=== PATIENT | female | born 1960 | race Caucasian/White ===

== ENCOUNTER → 2016-12-28 | Outpatient (CLI) | payer MEDICARE, MEDICAID ==
[~2016-12-28] MED LIST: ALBUTEROL1.25 MG/3 NEB; AMBIEN10 M1 PO; AMLODIPINE10 MG PO; AMLODIPINE5 MG PO; ASPIRIN81 M1 PO; Bactrim Ds 8001 TAB PO; DIABETA2.5 MG PO; DIABETA5 MG PO; DOCUSATE SODIU100 M2 PO; EFFEXOR50 MG PO; ELIMITE 5%60 GM T; FIORICET 325 MG1 TAB PO; FLONASE 0.05% 121 EA NAS; FLONASE0.05 MG/AC; GABARONE300 MG PO; GLYBURIDE5 MG PO; HYDROXYZINE HCL25 M1 PO; LANTUS100 U/ML SC; LEVASTATIN PO; LIDEX 0.05% CRE15 GM T; LISINOPRIL5 MG PO; LOPRESSOR25 MG PO; LOVASTATIN10 MG PO; LOVASTATIN40 MG PO; LYSTEDA650 MG PO; MAXIPIME1 GM IV; MUCINEX600 MG PO; MULTIVITAMIN1 SGL PO; Metformin Hydr500 MG PO; NORCO 325 MG-51 TAB PO; OVAR; OXYBUTYNIN5 MG PO; PAXIL10 MG PO; PERCOCET 325 MG1 TA2; PERCOCET 325 MG1 TA2 PO; PERCOCET 325 MG1 TA4 PO; PREDNICOT20 MG PO; PREDNISONE10 MG PO; PRILOSEC20 MG PO; QVAR 80MCG/INH7.3 G1; ROBAXIN750 MG PO; ROBITUSSIN AC 110 ML PO; VENTOLIN H0.09 MG/AC IH; VICODIN 5/500 505 MG PO; VITAMIN D400 IU PO; XANAX0.25 MG PO; ZITHROMAX Z PA250 MG PO; ZITHROMAX500 MG PO; ZOFRAN4 MG PO; [UNRECOGNIZED DRUG - CODE] SC; [UNRECOGNIZED DRUG - OTHER] R
[2016-12-28 15:39] LABS: URIC ACID 5.3 mg/dL (2.6-6.0)
[2016-12-28 15:44] LABS: THYROID STIM HORMONE (HS) 1.34 uIU/ml (0.358-4.75)
[2016-12-29 08:11] LABS: RHEUMATOID ARTHRITIS FACTOR <10.0 IU/mL (0.0-13.9)
[2016-12-29 11:05] LABS: LYME AB/TOTAL IMMUNOGLOBULINS <0.91 ISR (0.00-0.90)
[2016-12-29 15:07] LABS: ANGIOTENSIN-CONVERTING ENZYME 38 U/L (14-82)
== END | disposition home or self-care (01) ==
LOC: LAB 14:15 → US 14:30
PROVIDERS: Podiatrist
DX: R53.82 Chronic fatigue, unspecified (principal); R60.0 Localized edema

== ENCOUNTER → 2017-02-01 | Outpatient (CLI) | payer MEDICARE, MEDICAID ==
[2017-02-01 11:50] LABS: HEMATOCRIT 43.4 % (37.0-47.0); HEMOGLOBIN 14.8 g/dl (12.0-16.0); MEAN CELL VOLUME 94.6 fl (81.0-99.0); MEAN CORPUSCULAR HGB 32.2 pg (27.0-31.0); MEAN CORPUSCULAR HGB CONC 34.1 g/dl (33.0-37.0); MEAN PLATELET VOLUME 9.5 fl (9.6-12.3); PLATELET COUNT AUTOMATED 179 10*3/uL (130-400); RED BLOOD COUNT 4.59 10*6/uL (4.10-5.10); RED CELL DISTRI WIDTH 13.2 % (0-14.5)
[2017-02-01 12:05] LABS: ALBUMIN 3.4 gm/dl (3.1-4.5); ALKALINE PHOSPHATASE 159 U/L (45-117); BUN 16 mg/dl (7-24); CHLORIDE 106 mmol/L (98-107); CREATININE 0.93 mg/dL (0.55-1.02); IRON 67 ug/dL (50-170); POTASSIUM 4.5 mmol/L (3.5-5.1); SGOT/AST 23 IU/L (3-35); SGPT/ALT 30 U/L (12-78); SODIUM 144 mmol/L (136-145); TOTAL IRON BINDING CAPACITY 271 ug/dl (250-450); TOTAL PROTEIN 7.8 gm/dL (6.4-8.2)
[2017-02-01 13:31] LABS: FERRITIN 36.4 ng/mL (10.0-291.0)
== END | disposition home or self-care (01) ==
LOC: LAB 10:48
PROVIDERS: Physician Assistant Surgical
DX: E66.01 Morbid (severe) obesity due to excess calories (principal); R53.82 Chronic fatigue, unspecified; E56.9 Vitamin deficiency, unspecified; R79.89 Other specified abnormal findings of blood chemistry; E55.9 Vitamin D deficiency, unspecified; Z90.3 Acquired absence of stomach [part of]

== ENCOUNTER → 2017-02-02 | Outpatient (CLI) | payer MEDICARE, MEDICAID ==
[2017-02-02 09:18] LABS: BILIRUBIN NEGATIVE (NEGATIVE); BLOOD NEGATIVE (NEGATIVE); CLARITY CLEAR (CLEAR); COLOR YELLOW (YELLOW); GLUCOSE 3+ (NEGATIVE); KETONE NEGATIVE (NEGATIVE); LEUKO ESTERASE NEGATIVE (NEGATIVE); NITRITE NEGATIVE (NEGATIVE); SPECIFIC GRAVITY 1.015 (1.005-1.030); UROBILINOGEN 0.2 E.U./dl (0.2-1.0)
[2017-02-02 09:35] LABS: ALBUMIN 3.3 gm/dl (3.1-4.5); ALKALINE PHOSPHATASE 148 U/L (45-117); BILIRUBIN, DIRECT 0.2 mg/dL (0.0-0.2); BUN 16 mg/dl (7-24); CHLORIDE 107 mmol/L (98-107); CHOLESTEROL 168 mg/dL (<200); CREATININE 0.88 mg/dL (0.55-1.02); FREE T4 1.18 ng/dl (0.76-1.46); HDL CHOLESTEROL 46 mg/dl (40-60); LDL CHOLESTEROL 103 mg/dL (9-159); POTASSIUM 4.4 mmol/L (3.5-5.1); SGOT/AST 25 IU/L (3-35); SGPT/ALT 30 U/L (12-78); SODIUM 142 mmol/L (136-145); TOTAL PROTEIN 7.5 gm/dL (6.4-8.2); TRIGLYCERIDES 97 mg/dl (<150); VLDL CHOLESTEROL 19 mg/dL (6-40)
[2017-02-02 09:45] LABS: BACTERIA 1+; RBC 0-2 rbc/hpf (0-2); WBC 0-2 wbc/hpf (0-5)
[2017-02-02 10:05] LABS: VITAMIN D, 25-HYDROXY 40.3 ng/mL (30-100)
== END | disposition home or self-care (01) ==
LOC: LAB 08:44
PROVIDERS: Internal Medicine
DX: E04.9 Nontoxic goiter, unspecified (principal); E11.65 Type 2 diabetes mellitus with hyperglycemia; E78.5 Hyperlipidemia, unspecified; E55.9 Vitamin D deficiency, unspecified

== ENCOUNTER 2017-04-27 19:40 | Emergency (ER) | payer MEDICARE, MEDICAID ==
[~2017-04-27] VITALS: Ht 157.4 cm; Wt 100.7 kg
== END 2017-04-27 21:21 | disposition home or self-care (01) ==
LOC: ED 19:40
DX: S80.02XA Contusion of left knee, initial encounter (principal); S80.01XA Contusion of right knee, initial encounter; S39.012A Strain of muscle, fascia and tendon of lower back, initial encounter; Z79.899 Other long term (current) drug therapy; F10.10 Alcohol abuse, uncomplicated; W03.XXXA Other fall on same level due to collision with another person, initial encounter; Y93.89 Activity, other specified; Y92.098 Other place in other non-institutional residence as the place of occurrence of the external cause; Y99.8 Other external cause status

== ENCOUNTER 2017-05-12 22:29 | Emergency (ER) | payer MEDICARE, MEDICAID ==
[~2017-05-12] VITALS: Ht 160 cm; Wt 99.8 kg
[~2017-05-12 22:29] MED LIST changes: +FLONASE ALLERG9.9 ML NAS; -FLONASE0.05 MG/AC; -GABARONE300 MG PO; +NEURONTIN300 MG PO; +ROBAXIN-750750 MG PO; -ROBAXIN750 MG PO
[2017-05-12] MEDS ORDERED: Wellbutrin Sr100 MG PO (22:53)
[2017-05-12 23:08] LABS: BASO % 0.4 % (0.0-1.0); EOS # 0.1 10*3/uL (0.0-0.4); HEMATOCRIT 41.4 % (37.0-47.0); HEMOGLOBIN 14.4 g/dl (12.0-16.0); LYMPH # 2.5 10*3/uL (1.3-4.4); LYMPH % 35.8 % (27.0-41.0); MEAN CELL VOLUME 91.4 fl (81.0-99.0); MEAN CORPUSCULAR HGB 31.8 pg (27.0-31.0); MEAN CORPUSCULAR HGB CONC 34.8 g/dl (33.0-37.0); MEAN PLATELET VOLUME 9.4 fl (9.6-12.3); MONO # 0.7 10*3/uL (0.1-1.0); MONO % 9.2 % (3.0-9.0); NEUT # 3.7 10*3/uL (2.3-7.9); NEUT % 52.5 % (47.0-73.0); PLATELET COUNT AUTOMATED 182 10*3/uL (130-400); RED BLOOD COUNT 4.53 10*6/uL (4.10-5.10); RED CELL DISTRI WIDTH 12.8 % (0-14.5)
[2017-05-12 23:20] LABS: BUN 16 mg/dl (7-24); CHLORIDE 108 mmol/L (98-107); CREATININE 0.84 mg/dL (0.55-1.02); POTASSIUM 3.7 mmol/L (3.5-5.1); SODIUM 137 mmol/L (136-145)
[2017-05-12 23:21] LABS: ACETAMINOPHEN (TYLENOL) < 2.0 ug/ml (10-30); ETHYL ALCOHOL < 3.0 mg/dl (<3)
[2017-05-13 04:59] LABS: BILIRUBIN NEGATIVE (NEGATIVE); BLOOD NEGATIVE (NEGATIVE); CLARITY SL CLOUDY (CLEAR); COLOR YELLOW (YELLOW); GLUCOSE 3+ (NEGATIVE); KETONE TRACE (NEGATIVE); LEUKO ESTERASE NEGATIVE (NEGATIVE); NITRITE NEGATIVE (NEGATIVE); PH 5.5 (5.0-9.0); SPECIFIC GRAVITY 1.015 (1.005-1.030); UROBILINOGEN 0.2 E.U./dl (0.2-1.0)
[2017-05-13 05:05] LABS: BACTERIA 1+
[2017-05-13 05:09] LABS: URINE AMPHETAMINES < 1000 (1000ng/ml); URINE BARBITURATES < 200 (200ng/ml); URINE BENZODIAZEPINES < 200 (200ng/ml); URINE CANNABINOIDS (THC) < 50 (50ng/ml); URINE COCAINE < 300 (300ng/ml); URINE METHADONE < 300 (300ng/ml); URINE OPIATES < 300 (300ng/ml)
[2017-05-13 05:10] LABS: URINE PHENCYCLIDINE < 25 (25ng/ml)
[2017-05-13] MEDS ORDERED: NYSTATIN15 GM T (05:34)
[2017-05-13] MEDS ORDERED: METFORMIN1000 MG PO (05:35)
[2017-05-13] MEDS ORDERED: INVOKANA300 M1 PO (05:35)
[2017-05-13] MEDS ORDERED: TRULICITY0.75 MG/0. SC (05:36)
[2017-05-13] MEDS ORDERED: RESTASIS1 EACH OP (05:36)
[2017-05-13] MEDS ORDERED: MONTELUKAST SOD10 MG PO (18:25)
[2017-05-13] MEDS ORDERED: PRILOSEC20 M1 PO (18:25)
[2017-05-13] MEDS ORDERED: CELEBREX100 MG PO (18:26)
[2017-05-13] MEDS ORDERED: QVAR8.7 G1 INH (18:27)
[2017-05-13] MEDS ORDERED: VENTOLIN 02.5 MG/3 M INH (18:28)
[2017-05-13] MEDS ORDERED: B COMPLEX1 EACH PO (18:29)
[2017-05-13] MEDS ORDERED: MAGNESIUM OXID400 MG PO (18:30)
[2017-05-13] MEDS ORDERED: [UNRECOGNIZED DRUG - CODE] PO (18:31)
[2017-05-13] MEDS ORDERED: VITAMIN D35000 UNIT PO (18:33)
[2017-05-13] MEDS ORDERED: MULTIVITAMINS1 EAC5 PO (18:34)
== END 2017-05-13 05:12 | disposition home health service (06) ==
LOC: ED 22:29
PROVIDERS: Emergency Medicine
DX: F32.9 Major depressive disorder, single episode, unspecified (principal); Z79.899 Other long term (current) drug therapy

== ENCOUNTER 2017-05-13 04:47 | Inpatient (IN) | payer MEDICARE, MEDICAID ==
[~2017-05-13] VITALS: Ht 157.4 cm; Wt 100.2 kg
--- NOTE | ~2017-05-13 | WRIGHTHP ---
[place], [place] PATIENT HISTORY AND PHYSICAL EXAM NAME: DAVID BADILLO [facility] #: [id number] UNIT #: [id number] ROOM: 314 DOCTOR: AVIS BRUNSON MD BIRTHDATE: [birth year] DOS: 05/13/2017 INITIAL PSYCHIATRIC EVALUATION CHIEF COMPLAINT: "I am just so depressed; you have to do something, I was going to kill myself." HISTORY OF PRESENT ILLNESS: This is a 56-year-old white female who presented to the Emergency Room via EMS with the chief complaint of wanting to . The patient states that she is tired of living and just wants peace. She voices that she has been depressed for many, many months, worsening in the last month prior to admission. The patient has been seeing a psychiatrist and was initially prescribed Effexor XR and BuSpar, but this was ineffective. Most recently those two medications had been tapered and the patient was started on Wellbutrin, which only seemed to intensify her problems. The patient states that she has many stressors including the fact that her several years ago and that her youngest daughter is as she reports that a bully, that wants it her way or no way. The patient reports that she has a very difficult time setting limits with the daughter and the daughter again per her report has made her life a living hell. In addition to this, the patient endorses multiple neurovegetative symptoms. 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 She is admitted now to rule out any organic factors, to attempt to stabilize on medication, to engage in individual and cardona milieu activity including a family session with the youngest daughter if at all possible. PAST MEDICAL HISTORY: Remarkable for acute bronchitis and sinusitis, gastroenteritis, chronic headaches, left ankle and left knee sprain. MENTAL STATUS: The patient is alert and oriented. Mood is overwhelmingly depressed with some anxious overtones. There is no hypomania or harjeet. There are no overt auditory or visual hallucinations. No delusions, no paranoia. Memory for the most part is intact. DIAGNOSIS: Major depression, recurrent, severe. PLAN: I have discontinued her Wellbutrin in lieu of Remeron 15 mg at bedtime. I will perform routine screening examinations to rule out organic factors, engage in individual and cardona milieu activity, returning home when stable. [place], [place] PATIENT HISTORY AND PHYSICAL EXAM NAME: DAVID BADILLO UNIT #: [id number] ROOM: [facility] DOCTOR: AVIS BRUNSON MD BIRTHDATE: [birth year] AVIS BRUNSON MD CM:HISPHYS:PATIENT HISTORY AND PHYSICAL EXAMINATION [id number] AVIS BRUNSON MD 05/13/17 1154 interface
--- NOTE | ~2017-05-13 | DS ---
[place], [place] DISCHARGE SUMMARY NAME: DAVID BADILLO [facility] #: [id number] UNIT #: [id number] ROOM: 314 DOCTOR: AVIS BRUNSON MD BIRTHDATE: [birth year] DOS: 05/17/2017 CHIEF COMPLAINT: "I am just so depressed, you have to do something, I was going to kill myself." HISTORY OF PRESENT ILLNESS: This is a 56-year-old white female who presented to the Emergency Room at [facility] via EMS with a chief complaint of wanting to . The patient states that she is tired of living and just wants peace in her life. She voices that the depression has been going on for months, worsening in the last month prior to this admission. The patient sees a psychiatrist locally and has been prescribed Effexor XR and BuSpar. This was most recently discontinued and she was started on Wellbutrin, which per her report only intensified the problems. She states that she has many stressors including the loss of her , ongoing family discord, especially with her youngest daughter. The patient endorsed poor sleep and appetite, energy, anhedonia, hopeless, helpless feelings, crying spells and inability to cope. She was admitted to rule out any organic factors to attempt to re-stabilize on medication to have crisis intervention with family with the ultimate plan to return home when psychiatrically stable. PAST MEDICAL HISTORY: Remarkable for acute bronchitis, sinusitis, gastroenteritis, chronic headaches and left ankle and left knee sprain. SUMMARY OF HOSPITAL COURSE: The patient was admitted to the unit where she had her Wellbutrin discontinued in lieu of Remeron 15 mg at bedtime. This gave her an immediate improvement with sleep and appetite. This was maintained over the next several days to see how she would feel and she noticed that her mood began to lift. She was voicing positive plans for the future. A family session with her family was very beneficial and she was able to set some limits with them. She had improved sufficiently with her basic ADLs and her sleep and appetite that she felt that she could return home. She no longer was suicidal, homicidal or self-injurious and denied any medication side effects. MENTAL STATUS AT DISCHARGE: She was alert and oriented to person, place and time. Mood was euthymic. Affect appropriate. There were no symptoms suggestive of harjeet or hypomania. There were no overt auditory or visual hallucinations. No delusions, no paranoia. Short, intermediate and long-term memory were intact. FINAL DIAGNOSES: Major depression, recurrent and dysthymic disorder. PLAN: All of her prescriptions have been e-scribed. She will follow up at [facility] with Carley Philip. [place], [place] DISCHARGE SUMMARY NAME: DAVID BADILLO [facility] UNIT #: [id number] ROOM: 314 DOCTOR: AVIS BRUNSON MD BIRTHDATE: [birth year] AVIS BRUNSON MD CM:DISCHARG [id number] AVIS BRUNSON MD 05/17/17 1105 interface
--- NOTE | ~2017-05-13 | PR ---
[place], [place] PROGRESS NOTE [id number] UN[facility] #: [id number] ROOM: 314 DOCTOR: GELA GARCIA,MADIE BIRTHDATE: [birth year] DOS: CHIEF COMPLAINT: "I am feeling better." SUBJECTIVE: The patient is a 56-year-old lady with long history of depression and she was admitted with worsening depression and she became suicidal and she was started on mirtazapine. Today seen in quiet room. She readily engaged in conversation, stating she is feeling better. She did sleep better last night and had her breakfast this morning. Mood has improved and has no other question at present. MENTAL STATUS EXAMINATION: The patient is alert, oriented, readily engaged in conversation, fair eye contact. Speech is normal rate, tone, goal directed. Mood trending towards euthymia. Affect somewhat brighter. No harjeet or hypomania and no overt psychosis. Memory is intact. PLAN: The patient is showing improvement. Discussed option of adding another antidepressant, but she prefers to give more time to the current medicines, so we shall continue the same, continue her care and shall try and engage her in cardona milieu as she is more stable. MADIE REN MD CM:PNTRANS [id number] MADIE REN MD 05/15/17 1355 interface
--- NOTE | ~2017-05-13 | PR ---
[place], [place] PROGRESS NOTE [id number] UN[facility] #: [id number] ROOM: 314 DOCTOR: LOUANN COBOS,MY BIRTHDATE: [birth year] DOS: 05/14/2017 CHIEF COMPLAINT: "My daughter can come in between 2 and 4 p.m. today." SUMMARY OF THE VISIT: The patient was interviewed in the dining area, said Remeron works well for her and that she slept great last night. Denies any somnolence or other side effects from medications she received since being admitted here. Denies seeing or hearing things. Denies suicidal thoughts. She said her daughter would stop by today sometime between 2 and 4 p.m. due to her work schedule to have some kind of family discussion. MENTAL STATUS: The patient is alert and oriented. Mood is depressed, although with some improvement. There is no hypomania or harjeet noted. There are no overt auditory or visual hallucinations, delusions or paranoia. Memory is intact for the most part. PLAN: We will continue Remeron 15 mg at bedtime, continue Exelon patch 9.5 mg q.a.m. We will engage the patient in individual and cardona milieu with the ultimate plan is to discharge the patient home once she is psychiatrically stable. MY DO LOUANN AVIS BRUNSON MD CM:PNALEX [id number] TAI LEW DO 05/15/17 1405 interface
--- NOTE | ~2017-05-13 | PR ---
[place], [place] PROGRESS NOTE [id number] #: [id number] ROOM: 314 DOCTOR: GELA GARCIA,MADIE BIRTHDATE: [birth year] DOS: CHIEF COMPLAINT: "I'm feeling better." SUBJECTIVE: The patient is seen this morning, sitting in dining area, readily engaged in conversation, stating that she has been taking her medicines, no concern about meds, states that she is feeling better being in the hospital, away from the stressors at home. Mood has been better, did sleep well at night, has been eating alright, concentration is better and she has no other concerns at present. MENTAL STATUS EXAMINATION: The patient is awake, alert, oriented to person, place and time. Fair eye contact. Speech is normal rate, tone, goal directed. Mood trending towards euthymia. No manic or hypomanic symptoms and no psychosis. PLAN: The patient is showing improvement, so we shall continue with the same medicines and engage her in cardona milieu. MADIE REN MD CM:BEATRIZ [id number] MADIE REN MD 05/16/17 1337 interface
[~2017-05-13 04:47] MED LIST changes: +Wellbutrin Sr100 MG PO
[2017-05-13] MEDS ORDERED: NYSTATIN15 GM T (05:34)
[2017-05-13] MEDS ORDERED: METFORMIN1000 MG PO (05:35)
[2017-05-13] MEDS ORDERED: INVOKANA300 M1 PO (05:35)
[2017-05-13] MEDS ORDERED: TRULICITY0.75 MG/0. SC (05:36)
[2017-05-13] MEDS ORDERED: RESTASIS1 EACH OP (05:36)
[2017-05-13 05:48] VITALS: BP 111/90
[2017-05-13 05:57] VITALS: BP 111/90
[2017-05-13 08:56] VITALS: BP 113/53
[2017-05-13 11:42] LABS: BILIRUBIN NEGATIVE (NEGATIVE); BLOOD NEGATIVE (NEGATIVE); CLARITY SL CLOUDY (CLEAR); COLOR YELLOW (YELLOW); GLUCOSE 3+ (NEGATIVE); KETONE 1+ (NEGATIVE); LEUKO ESTERASE NEGATIVE (NEGATIVE); NITRITE NEGATIVE (NEGATIVE); PH 5.5 (5.0-9.0); UROBILINOGEN 0.2 E.U./dl (0.2-1.0)
[2017-05-13 17:38] LABS: BASO % 0.4 % (0.0-1.0); EOS # 0.1 10*3/uL (0.0-0.4); EOS % 1.6 % (1.0-4.0); HEMATOCRIT 42.8 % (37.0-47.0); HEMOGLOBIN 14.8 g/dl (12.0-16.0); LYMPH % 28.8 % (27.0-41.0); MEAN CELL VOLUME 92.8 fl (81.0-99.0); MEAN CORPUSCULAR HGB 32.1 pg (27.0-31.0); MEAN CORPUSCULAR HGB CONC 34.6 g/dl (33.0-37.0); MEAN PLATELET VOLUME 9.6 fl (9.6-12.3); MONO # 0.6 10*3/uL (0.1-1.0); MONO % 8.8 % (3.0-9.0); NEUT # 4.1 10*3/uL (2.3-7.9); PLATELET COUNT AUTOMATED 194 10*3/uL (130-400); RED BLOOD COUNT 4.61 10*6/uL (4.10-5.10); RED CELL DISTRI WIDTH 12.9 % (0-14.5); WHITE BLOOD COUNT 6.8 10*3/uL (4.8-10.8)
[2017-05-13 17:57] LABS: ALBUMIN 3.4 gm/dl (3.1-4.5); ALKALINE PHOSPHATASE 179 U/L (45-117); BUN 13 mg/dl (7-24); CHLORIDE 104 mmol/L (98-107); SGOT/AST 32 IU/L (3-35); SGPT/ALT 34 U/L (12-78); SODIUM 136 mmol/L (136-145)
[2017-05-13] MEDS ORDERED: PRILOSEC20 M1 PO (18:25)
[2017-05-13] MEDS ORDERED: MONTELUKAST SOD10 MG PO (18:25)
[2017-05-13] MEDS ORDERED: CELEBREX100 MG PO (18:26)
[2017-05-13] MEDS ORDERED: QVAR8.7 G1 INH (18:27)
[2017-05-13] MEDS ORDERED: VENTOLIN 02.5 MG/3 M INH (18:28)
[2017-05-13] MEDS ORDERED: B COMPLEX1 EACH PO (18:29)
[2017-05-13] MEDS ORDERED: MAGNESIUM OXID400 MG PO (18:30)
[2017-05-13] MEDS ORDERED: [UNRECOGNIZED DRUG - CODE] PO (18:31)
[2017-05-13] MEDS ORDERED: VITAMIN D35000 UNIT PO (18:33)
[2017-05-13] MEDS ORDERED: MULTIVITAMINS1 EAC5 PO (18:34)
[2017-05-13 20:00] VITALS: BP 132/67
[2017-05-14 05:37] LABS: CHOLESTEROL 160 mg/dL (<200); HDL CHOLESTEROL 45 mg/dl (40-60); LDL CHOLESTEROL 89 mg/dL (9-159); TRIGLYCERIDES 129 mg/dl (<150); VLDL CHOLESTEROL 26 mg/dL (6-40)
[2017-05-14 07:55] VITALS: BP 113/57
[2017-05-14 20:00] VITALS: BP 110/55
[2017-05-15 08:02] VITALS: BP 108/69
[2017-05-15 19:56] VITALS: BP 129/64
[2017-05-16 07:48] VITALS: BP 101/78; BP 142/80
[2017-05-16 20:13] VITALS: BP 118/64
[2017-05-17 07:54] VITALS: BP 112/78
[2017-05-17] MEDS ORDERED: MIRTAZAPINE15 M2 PO (09:38)
== END 2017-05-17 16:00 | disposition home or self-care (01) | DRG 885 ==
LOC: 3N 04:47
PROVIDERS: Internal Medicine; ADMIT Psychiatry & Neurology Psychiatry
DX: F33.2 Major depressive disorder, recurrent severe without psychotic features (principal); R45.851 Suicidal ideations; E11.65 Type 2 diabetes mellitus with hyperglycemia; Z68.41 Body mass index [BMI] 40.0-44.9, adult; F34.1 Dysthymic disorder; R51 Headache; R81 Glycosuria; R82.4 Acetonuria; J45.909 Unspecified asthma, uncomplicated; M15.9 Polyosteoarthritis, unspecified; G47.33 Obstructive sleep apnea (adult) (pediatric); I10 Essential (primary) hypertension; E78.5 Hyperlipidemia, unspecified; K21.9 Gastro-esophageal reflux disease without esophagitis; F41.9 Anxiety disorder, unspecified; E66.01 Morbid (severe) obesity due to excess calories; R63.4 Abnormal weight loss; Z98.51 Tubal ligation status; Z98.84 Bariatric surgery status; Z82.49 Family history of ischemic heart disease and other diseases of the circulatory system; Z83.3 Family history of diabetes mellitus; Z84.1 Family history of disorders of kidney and ureter; Z79.899 Other long term (current) drug therapy; Z79.84 Long term (current) use of oral hypoglycemic drugs

== ENCOUNTER → 2017-08-30 | Outpatient (CLI) | payer MEDICARE, MEDICAID ==
[~2017-08-30] MED LIST changes: +B COMPLEX1 EACH PO; +CELEBREX100 MG PO; +INVOKANA300 M1 PO; +MAGNESIUM OXID400 MG PO; +METFORMIN1000 MG PO; +MIRTAZAPINE15 M2 PO; +MONTELUKAST SOD10 MG PO; +MULTIVITAMINS1 EAC5 PO; +NYSTATIN15 GM T; +PRILOSEC20 M1 PO; +QVAR8.7 G1 INH; +RESTASIS1 EACH OP; +TRULICITY0.75 MG/0. SC; +VENTOLIN 02.5 MG/3 M INH; +VITAMIN D35000 UNIT PO; +[UNRECOGNIZED DRUG - CODE] PO
[2017-08-30 10:35] LABS: ALBUMIN 3.2 gm/dl (3.1-4.5); ALKALINE PHOSPHATASE 156 U/L (45-117); BILIRUBIN, DIRECT 0.1 mg/dL (0.0-0.2); BUN 16 mg/dl (7-24); CHLORIDE 105 mmol/L (98-107); CHOLESTEROL 202 mg/dL (<200); FREE T4 0.98 ng/dl (0.76-1.46); HDL CHOLESTEROL 49 mg/dl (40-60); LDL CHOLESTEROL 130 mg/dL (9-159); POTASSIUM 4.2 mmol/L (3.5-5.1); SGOT/AST 21 IU/L (3-35); SGPT/ALT 35 U/L (12-78); SODIUM 141 mmol/L (136-145); TOTAL PROTEIN 7.2 gm/dL (6.4-8.2); TRIGLYCERIDES 117 mg/dl (<150); VLDL CHOLESTEROL 23 mg/dL (6-40)
[2017-08-30 11:19] LABS: BILIRUBIN NEGATIVE (NEGATIVE); BLOOD NEGATIVE (NEGATIVE); CLARITY CLOUDY (CLEAR); COLOR YELLOW (YELLOW); GLUCOSE NEGATIVE (NEGATIVE); KETONE NEGATIVE (NEGATIVE); LEUKO ESTERASE 1+ (NEGATIVE); NITRITE NEGATIVE (NEGATIVE); SPECIFIC GRAVITY >= 1.030 (1.005-1.030); UROBILINOGEN 0.2 E.U./dl (0.2-1.0)
[2017-08-30 12:45] LABS: VITAMIN D, 25-HYDROXY 41.2 ng/mL (30-100)
== END | disposition home or self-care (01) ==
LOC: LAB 09:41
PROVIDERS: Internal Medicine
DX: E04.9 Nontoxic goiter, unspecified (principal); E78.5 Hyperlipidemia, unspecified; R25.2 Cramp and spasm; E11.65 Type 2 diabetes mellitus with hyperglycemia; E11.40 Type 2 diabetes mellitus with diabetic neuropathy, unspecified; E55.9 Vitamin D deficiency, unspecified

== ENCOUNTER → 2017-11-17 | Outpatient (CLI) | payer MEDICARE, MEDICAID | END | disposition home or self-care (01) | LOC: CARD 15:05 | DX: Z01.818 Encounter for other preprocedural examination (principal) ==

== ENCOUNTER → 2018-01-03 | Outpatient (CLI) | payer MEDICARE, MEDICAID ==
[2018-01-03 10:31] LABS: BILIRUBIN NEGATIVE (NEGATIVE); BLOOD TRACE-INTACT (NEGATIVE); CLARITY CLEAR (CLEAR); COLOR YELLOW (YELLOW); GLUCOSE 3+ (NEGATIVE); KETONE NEGATIVE (NEGATIVE); LEUKO ESTERASE 1+ (NEGATIVE); NITRITE NEGATIVE (NEGATIVE); UROBILINOGEN 0.2 E.U./dl (0.2-1.0)
[2018-01-03 10:55] LABS: ALBUMIN 3.2 gm/dl (3.1-4.5); ALKALINE PHOSPHATASE 173 U/L (45-117); BILIRUBIN, DIRECT < 0.1 mg/dL (0.0-0.2); BUN 11 mg/dl (7-24); CHLORIDE 108 mmol/L (98-107); CHOLESTEROL 200 mg/dL (<200); FREE T4 0.88 ng/dl (0.76-1.46); HDL CHOLESTEROL 49 mg/dl (40-60); LDL CHOLESTEROL 119 mg/dL (9-159); POTASSIUM 4.2 mmol/L (3.5-5.1); SGOT/AST 26 IU/L (3-35); SGPT/ALT 42 U/L (12-78); SODIUM 144 mmol/L (136-145); TOTAL PROTEIN 7.3 gm/dL (6.4-8.2); TRIGLYCERIDES 159 mg/dl (<150); VLDL CHOLESTEROL 32 mg/dL (6-40)
[2018-01-03 11:04] LABS: EPITHELIAL CELLS 41-50; WBC 41-50 wbc/hpf (0-5)
[2018-01-03 11:05] LABS: BACTERIA 2+
== END | disposition home or self-care (01) ==
LOC: LAB 09:41
PROVIDERS: Internal Medicine
DX: E11.65 Type 2 diabetes mellitus with hyperglycemia (principal); E78.5 Hyperlipidemia, unspecified; E04.9 Nontoxic goiter, unspecified; R25.2 Cramp and spasm; E55.9 Vitamin D deficiency, unspecified

== ENCOUNTER 2018-07-02 13:38 | Emergency (ER) | payer OTHER, MEDICAID ==
[~2018-07-02 13:38] MED LIST changes: +CYCLOBENZAPRINE10 MG PO; +FLOVENT HFA12 GM INH; +LOVASTATIN20 MG PO; -LOVASTATIN40 MG PO; -MAGNESIUM OXID400 MG PO; +METFORMIN ER500 MG PO; -METFORMIN1000 MG PO; -MONTELUKAST SOD10 MG PO; +Magnesium Oxid400 MG PO; -NEURONTIN300 MG PO; +NEURONTIN600 MG PO; +NORCO 5-325 TA1 EACH PO; +NYSTATIN1 EAC5 MC; -NYSTATIN15 GM T; +PROAIR HFA8.5 GM INH; +PROZAC40 M1 PO; +SINGULAIR10 M1 PO; -TRULICITY0.75 MG/0. SC; +TRULICITY1.5 MG/0.5 SC; -VENTOLIN 02.5 MG/3 M INH
[2018-08-13] MEDS ORDERED: GUAIFENESIN AC473 M1 PO (21:06)
== END 2018-07-02 14:34 | disposition home or self-care (01) ==
LOC: ED 13:38
DX: S89.92XA Unspecified injury of left lower leg, initial encounter (principal); K21.9 Gastro-esophageal reflux disease without esophagitis; E78.5 Hyperlipidemia, unspecified; I10 Essential (primary) hypertension; E11.9 Type 2 diabetes mellitus without complications; J45.909 Unspecified asthma, uncomplicated; M19.90 Unspecified osteoarthritis, unspecified site; E66.9 Obesity, unspecified; Z79.899 Other long term (current) drug therapy; W10.8XXA Fall (on) (from) other stairs and steps, initial encounter; Y93.89 Activity, other specified; Y92.89 Other specified places as the place of occurrence of the external cause; Y99.8 Other external cause status

== ENCOUNTER → 2018-08-03 | Outpatient (CLI) | payer OTHER, MEDICAID ==
[~2018-08-03] MED LIST changes: +ATORVASTATIN CA40 M1 PO; +DICYCLOMINE HCL10 MG PO; +DICYCLOMINE HYD20 MG PO; +GUAIFENESIN AC473 M1 PO; +JARDIANCE25 MG PO; +LOSARTAN POTASS25 M1 PO; +MELATONIN10 M6 PO; +PROTONIX40 MG PO; +TIZANIDINE HCL4 MG PO; +TRAZODONE50 MG PO; +ULTRAM50 MG PO
== END | disposition home or self-care (01) ==
LOC: RAD 12:00
DX: J44.9 Chronic obstructive pulmonary disease, unspecified (principal); J45.909 Unspecified asthma, uncomplicated

== ENCOUNTER 2018-08-16 16:58 | Emergency (ER) | payer OTHER, MEDICAID ==
[~2018-08-16] VITALS: Ht 157.4 cm; Wt 96.2 kg
[~2018-08-16 16:58] MED LIST changes: -ATORVASTATIN CA40 M1 PO; -DICYCLOMINE HCL10 MG PO; -DICYCLOMINE HYD20 MG PO; -JARDIANCE25 MG PO; -LOSARTAN POTASS25 M1 PO; -MELATONIN10 M6 PO; -PROTONIX40 MG PO; -TIZANIDINE HCL4 MG PO; -TRAZODONE50 MG PO; -ULTRAM50 MG PO
[2018-08-16 18:16] LABS: BASO % 0.3 % (0.0-1.0); EOS # 0.2 10*3/uL (0.0-0.4); EOS % 1.5 % (1.0-4.0); HEMATOCRIT 46.9 % (37.0-47.0); HEMOGLOBIN 16.2 g/dl (12.0-16.0); LYMPH # 0.6 10*3/uL (1.3-4.4); MEAN CELL VOLUME 93.8 fl (81.0-99.0); MEAN CORPUSCULAR HGB 32.4 pg (27.0-31.0); MEAN CORPUSCULAR HGB CONC 34.5 g/dl (33.0-37.0); MEAN PLATELET VOLUME 9.7 fl (9.6-12.3); MONO # 0.6 10*3/uL (0.1-1.0); MONO % 5.5 % (3.0-9.0); NEUT # 9.7 10*3/uL (2.3-7.9); NEUT % 87.2 % (47.0-73.0); PLATELET COUNT AUTOMATED 193 10*3/uL (130-400); RED CELL DISTRI WIDTH 12.8 % (0-14.5); WHITE BLOOD COUNT 11.2 10*3/uL (4.8-10.8)
[2018-08-16 18:38] LABS: ALBUMIN 3.4 gm/dl (3.1-4.5); ALKALINE PHOSPHATASE 175 U/L (45-117); BUN 13 mg/dl (7-24); CHLORIDE 105 mmol/L (98-107); CREATININE 0.76 mg/dL (0.55-1.02); LIPASE 93 U/L (73-393); POTASSIUM 4.4 mmol/L (3.5-5.1); SGOT/AST 31 IU/L (3-35); SGPT/ALT 51 U/L (12-78); SODIUM 137 mmol/L (136-145); TOTAL PROTEIN 7.4 gm/dL (6.4-8.2)
[2018-08-16 19:50] LABS: BILIRUBIN NEGATIVE (NEGATIVE); BLOOD NEGATIVE (NEGATIVE); CLARITY CLEAR (CLEAR); COLOR YELLOW (YELLOW); GLUCOSE 3+ (NEGATIVE); KETONE 2+ (NEGATIVE); LEUKO ESTERASE NEGATIVE (NEGATIVE); NITRITE NEGATIVE (NEGATIVE); UROBILINOGEN 0.2 E.U./dl (0.2-1.0)
[2018-08-16 20:05] LABS: BACTERIA 1+; WBC 0-2 wbc/hpf (0-5)
[2018-08-16] MEDS ORDERED: ZOFRAN4 MG PO (21:19)
== END 2018-08-16 21:33 | disposition home or self-care (01) ==
LOC: ED 16:58
PROVIDERS: Nurse Practitioner Family
DX: A08.4 Viral intestinal infection, unspecified (principal); R05 Cough; M54.5 Low back pain; R51 Headache; Z79.899 Other long term (current) drug therapy

== ENCOUNTER → 2018-08-24 | Outpatient (CLI) | payer OTHER ==
[~2018-08-24] MED LIST changes: +ATORVASTATIN CA40 M1 PO; +DICYCLOMINE HCL10 MG PO; +DICYCLOMINE HYD20 MG PO; +JARDIANCE25 MG PO; +LOSARTAN POTASS25 M1 PO; +MELATONIN10 M6 PO; +PROTONIX40 MG PO; +TIZANIDINE HCL4 MG PO; +TRAZODONE50 MG PO; +ULTRAM50 MG PO
[2018-08-24 10:53] LABS: BILIRUBIN NEGATIVE (NEGATIVE); BLOOD NEGATIVE (NEGATIVE); CLARITY CLEAR (CLEAR); COLOR YELLOW (YELLOW); GLUCOSE 3+ (NEGATIVE); KETONE NEGATIVE (NEGATIVE); LEUKO ESTERASE NEGATIVE (NEGATIVE); NITRITE NEGATIVE (NEGATIVE); SPECIFIC GRAVITY 1.025 (1.005-1.030); UROBILINOGEN 0.2 E.U./dl (0.2-1.0)
[2018-08-24 11:00] LABS: BACTERIA 1+; RBC 0-2 rbc/hpf (0-2)
[2018-08-24 11:16] LABS: ALKALINE PHOSPHATASE 161 U/L (45-117); BILIRUBIN, DIRECT 0.2 mg/dL (0.0-0.2); BUN 14 mg/dl (7-24); CHLORIDE 106 mmol/L (98-107); CHOLESTEROL 195 mg/dL (<200); CREATININE 0.84 mg/dL (0.55-1.02); FREE T4 0.98 ng/dl (0.76-1.46); HDL CHOLESTEROL 42 mg/dl (40-60); LDL CHOLESTEROL 117 mg/dL (9-159); POTASSIUM 4.4 mmol/L (3.5-5.1); SGOT/AST 22 IU/L (3-35); SGPT/ALT 36 U/L (12-78); SODIUM 141 mmol/L (136-145); TOTAL PROTEIN 7.2 gm/dL (6.4-8.2); TRIGLYCERIDES 181 mg/dl (<150); VLDL CHOLESTEROL 36 mg/dL (6-40)
== END | disposition home or self-care (01) ==
LOC: LAB 10:12
PROVIDERS: Internal Medicine
DX: E11.65 Type 2 diabetes mellitus with hyperglycemia (principal); E04.9 Nontoxic goiter, unspecified; E55.9 Vitamin D deficiency, unspecified; E78.5 Hyperlipidemia, unspecified; R25.2 Cramp and spasm; N39.0 Urinary tract infection, site not specified

== ENCOUNTER → 2018-10-11 | Outpatient (CLI) | payer OTHER ==
[2018-10-11 10:06] LABS: HEMATOCRIT 41.5 % (37.0-47.0); HEMOGLOBIN 14.2 g/dl (12.0-16.0); MEAN CORPUSCULAR HGB 32.5 pg (27.0-31.0); MEAN CORPUSCULAR HGB CONC 34.2 g/dl (33.0-37.0); MEAN PLATELET VOLUME 9.7 fl (9.6-12.3); RED BLOOD COUNT 4.37 10*6/uL (4.10-5.10); RED CELL DISTRI WIDTH 12.4 % (0-14.5); WHITE BLOOD COUNT 10.7 10*3/uL (4.8-10.8)
[2018-10-11 10:25] LABS: ALBUMIN 3.5 gm/dl (3.1-4.5); BUN 15 mg/dl (7-24); CHLORIDE 107 mmol/L (98-107); CHOLESTEROL 164 mg/dL (<200); CREATININE 0.81 mg/dL (0.55-1.02); POTASSIUM 4.3 mmol/L (3.5-5.1); SGOT/AST 19 IU/L (3-35); SGPT/ALT 29 U/L (12-78); SODIUM 141 mmol/L (136-145); TRIGLYCERIDES 84 mg/dl (<150); VLDL CHOLESTEROL 17 mg/dL (6-40)
[2018-10-11 10:27] LABS: ALKALINE PHOSPHATASE 158 U/L (45-117); HDL CHOLESTEROL 56 mg/dl (40-60); LDL CHOLESTEROL 91 mg/dL (9-159); TOTAL PROTEIN 7.4 gm/dL (6.4-8.2)
== END | disposition home or self-care (01) ==
LOC: LAB 09:21
PROVIDERS: Registered Nurse Flight
DX: E78.5 Hyperlipidemia, unspecified (principal); I10 Essential (primary) hypertension

== ENCOUNTER 2018-11-19 04:31 | Emergency (ER) | payer OTHER ==
[~2018-11-19] VITALS: Ht 157.4 cm; Wt 102.8 kg
--- NOTE | ~2018-11-19 | EKG ---
[place], [place] ELECTROCARDIOGRAM REPORT NAME: DAVID BADILLO UNIT #: [id number] ROOM: DOCTOR: EPIPHANY DRAFT REPORT BIRTHDATE: [birth year] [facility] Test Date: 2018-11-19 Test Time: 04:46:08 Pat Name: DAVID BADILLO Department: Room: Gender: F Shelter Supervisor: : 1960 Requested By: NITZA SCHWARTZ Order Number: [id number] [place] MD: Yordy Pratt MD Measurements Intervals [place] Rate: 70 P: 36 CO: 116 QRS: 7 QRSD: 93 T: 18 QT: 407 QTc: 440 Interpretive Statements Sinus rhythm Borderline short [place] interval Left ventricular hypertrophy Compared to ECG 04/30/2018 18:51:02 No significant changes Electronically Signed On 11-21-2018 8:12:02 PDT by Yordy Pratt MD CM:EKGRPT:ELECTROCARDIOGRAM REPORT [id number] NITZA SCHWARTZ MD EPIPHANY DRAFT REPORT NITZA SCHWARTZ MD
[~2018-11-19 04:31] MED LIST changes: -ATORVASTATIN CA40 M1 PO; -DICYCLOMINE HCL10 MG PO; -DICYCLOMINE HYD20 MG PO; -JARDIANCE25 MG PO; -LOSARTAN POTASS25 M1 PO; -MELATONIN10 M6 PO; -PROTONIX40 MG PO; -TIZANIDINE HCL4 MG PO; -TRAZODONE50 MG PO; -ULTRAM50 MG PO
[2018-11-19 05:16] LABS: BASO % 0.4 % (0.0-1.0); EOS # 0.1 10*3/uL (0.0-0.4); EOS % 1.4 % (1.0-4.0); HEMATOCRIT 39.6 % (37.0-47.0); HEMOGLOBIN 13.2 g/dl (12.0-16.0); LYMPH # 0.9 10*3/uL (1.3-4.4); LYMPH % 15.6 % (27.0-41.0); MEAN CELL VOLUME 97.5 fl (81.0-99.0); MEAN CORPUSCULAR HGB 32.5 pg (27.0-31.0); MEAN CORPUSCULAR HGB CONC 33.3 g/dl (33.0-37.0); MEAN PLATELET VOLUME 9.4 fl (9.6-12.3); MONO # 0.6 10*3/uL (0.1-1.0); NEUT # 4.1 10*3/uL (2.3-7.9); NEUT % 71.2 % (47.0-73.0); PLATELET COUNT AUTOMATED 167 10*3/uL (130-400); RED BLOOD COUNT 4.06 10*6/uL (4.10-5.10); RED CELL DISTRI WIDTH 12.4 % (0-14.5); WHITE BLOOD COUNT 5.7 10*3/uL (4.8-10.8)
[2018-11-19 05:34] LABS: ALBUMIN 2.9 gm/dl (3.1-4.5); ALKALINE PHOSPHATASE 192 U/L (45-117); BUN 14 mg/dl (7-24); CHLORIDE 108 mmol/L (98-107); CREATININE 1.04 mg/dL (0.55-1.02); INTERNATIONAL NORM RATIO 0.9 (2.0-3.5); LIPASE 126 U/L (73-393); POTASSIUM 4.3 mmol/L (3.5-5.1); SGOT/AST 29 IU/L (3-35); SGPT/ALT 33 U/L (12-78); SODIUM 141 mmol/L (136-145); TOTAL PROTEIN 6.5 gm/dL (6.4-8.2)
[2018-11-19 05:40] LABS: TROPONIN I < 0.015 ng/ml (<0.045)
[2018-11-19 06:21] LABS: BILIRUBIN NEGATIVE (NEGATIVE); BLOOD NEGATIVE (NEGATIVE); CLARITY SL CLOUDY (CLEAR); COLOR YELLOW (YELLOW); GLUCOSE 3+ (NEGATIVE); KETONE TRACE (NEGATIVE); LEUKO ESTERASE NEGATIVE (NEGATIVE); NITRITE NEGATIVE (NEGATIVE); UROBILINOGEN 0.2 E.U./dl (0.2-1.0)
[2018-11-19 06:38] LABS: BACTERIA TRACE; EPITHELIAL CELLS 0-2; WBC 0-2 wbc/hpf (0-5)
[2018-11-19] MEDS ORDERED: ULTRAM50 MG PO (06:47)
[2018-11-19] MEDS ORDERED: DICYCLOMINE HCL10 MG PO (06:47)
== END 2018-11-19 06:45 | disposition home or self-care (01) ==
LOC: ED 04:31
PROVIDERS: Emergency Medicine Emergency Medical Services
DX: K80.50 Calculus of bile duct without cholangitis or cholecystitis without obstruction (principal); J45.909 Unspecified asthma, uncomplicated; K21.9 Gastro-esophageal reflux disease without esophagitis; E11.9 Type 2 diabetes mellitus without complications; I10 Essential (primary) hypertension; E78.5 Hyperlipidemia, unspecified; M19.90 Unspecified osteoarthritis, unspecified site; E66.9 Obesity, unspecified

== ENCOUNTER 2019-01-05 01:32 | Emergency (ER) | payer OTHER ==
[~2019-01-05] VITALS: Ht 157.4 cm; Wt 99.8 kg
--- NOTE | ~2019-01-05 | EKG ---
[place], [place] ELECTROCARDIOGRAM REPORT NAME: DAVID BADILLO UNIT #: [id number] ROOM: DOCTOR: EPIPHANY DRAFT REPORT BIRTHDATE: [birth year] [facility] Test Date: 2019-01-05 Test Time: 02:05:19 Pat Name: DAVID BADILLO Department: Room: Gender: F Tape Calender: SS RESP : 1960 Requested By: NITZA SCHWARTZ Order Number: [id number] [place] MD: Measurements Intervals [place] Rate: 65 P: 32 WI: 125 QRS: 4 QRSD: 96 T: 14 QT: 424 QTc: 441 Interpretive Statements Sinus rhythm Left ventricular hypertrophy Compared to ECG 11/19/2018 04:46:08 No significant changes CM:EKGRPT:ELECTROCARDIOGRAM REPORT [id number] [facility] NITZA SCHWARTZ MD
[~2019-01-05 01:32] MED LIST changes: +DICYCLOMINE HCL10 MG PO; +ULTRAM50 MG PO
[2019-01-05 01:56] LABS: BASO % 0.4 % (0.0-1.0); EOS # 0.2 10*3/uL (0.0-0.4); EOS % 2.4 % (1.0-4.0); HEMATOCRIT 39.6 % (37.0-47.0); HEMOGLOBIN 13.4 g/dl (12.0-16.0); LYMPH # 2.2 10*3/uL (1.3-4.4); LYMPH % 31.2 % (27.0-41.0); MEAN CELL VOLUME 96.4 fl (81.0-99.0); MEAN CORPUSCULAR HGB 32.6 pg (27.0-31.0); MEAN CORPUSCULAR HGB CONC 33.8 g/dl (33.0-37.0); MEAN PLATELET VOLUME 9.4 fl (9.6-12.3); MONO # 0.7 10*3/uL (0.1-1.0); MONO % 9.2 % (3.0-9.0); NEUT % 56.5 % (47.0-73.0); PLATELET COUNT AUTOMATED 186 10*3/uL (130-400); RED BLOOD COUNT 4.11 10*6/uL (4.10-5.10); RED CELL DISTRI WIDTH 12.4 % (0-14.5)
[2019-01-05 02:06] LABS: INTERNATIONAL NORM RATIO 0.9 (2.0-3.5)
[2019-01-05] MEDS ORDERED: LOSARTAN POTASS25 M1 PO (02:09)
[2019-01-05] MEDS ORDERED: TRAZODONE50 MG PO (02:10)
[2019-01-05] MEDS ORDERED: ATORVASTATIN CA40 M1 PO (02:10)
[2019-01-05] MEDS ORDERED: MELATONIN10 M6 PO (02:11)
[2019-01-05 02:12] LABS: ALBUMIN 3.5 gm/dl (3.1-4.5); ALKALINE PHOSPHATASE 189 U/L (45-117); BUN 14 mg/dl (7-24); CHLORIDE 110 mmol/L (98-107); CREATININE 1.15 mg/dL (0.55-1.02); LIPASE 101 U/L (73-393); POTASSIUM 3.9 mmol/L (3.5-5.1); SGOT/AST 23 IU/L (3-35); SGPT/ALT 34 U/L (12-78); SODIUM 143 mmol/L (136-145); TOTAL PROTEIN 7.6 gm/dL (6.4-8.2)
[2019-01-05] MEDS ORDERED: TIZANIDINE HCL4 MG PO (02:12)
[2019-01-05] MEDS ORDERED: JARDIANCE25 MG PO (02:12)
[2019-01-05 02:13] LABS: TROPONIN I < 0.015 ng/ml (<0.045)
[2019-01-05] MEDS ORDERED: PROTONIX40 MG PO (04:14)
[2019-01-05] MEDS ORDERED: DICYCLOMINE HYD20 MG PO (04:14)
== END 2019-01-05 04:28 | disposition home or self-care (01) ==
LOC: ED 01:32
PROVIDERS: Emergency Medicine Emergency Medical Services
DX: K80.20 Calculus of gallbladder without cholecystitis without obstruction (principal); K21.9 Gastro-esophageal reflux disease without esophagitis; J45.909 Unspecified asthma, uncomplicated; E78.5 Hyperlipidemia, unspecified; I10 Essential (primary) hypertension; E66.9 Obesity, unspecified; M19.90 Unspecified osteoarthritis, unspecified site; Z91.048 Other nonmedicinal substance allergy status; Z79.899 Other long term (current) drug therapy

== ENCOUNTER 2019-03-14 19:02 | Emergency (ER) | payer OTHER, MEDICAID ==
[~2019-03-14] VITALS: Ht 157.4 cm; Wt 99.8 kg
--- NOTE | ~2019-03-14 | EKG ---
[place], [place] ELECTROCARDIOGRAM REPORT NAME: DAVID BADILLO UNIT #: [id number] ROOM: DOCTOR: EPIPHANY DRAFT REPORT BIRTHDATE: [birth year] [facility] Test Date: 2019-03-14 Test Time: 19:45:46 Pat Name: DAVID BADILLO Department: Room: Gender: F Senior Functional Analyst: Alisia Story : 1960 Requested By: DEONDRE CRISTINA Order Number: [id number] [place] MD: Mahendra Ngo MD Measurements Intervals [place] Rate: 61 P: 8 FL: 119 QRS: 7 QRSD: 98 T: 13 QT: 422 QTc: 425 Interpretive Statements Sinus rhythm Borderline short [place] interval Left ventricular hypertrophy Compared to ECG 01/05/2019 02:05:19 No significant changes Electronically Signed On 03-15-2019 6:04:37 PDT by Mahendra Ngo MD CM:EKGRPT:ELECTROCARDIOGRAM REPORT [id number] DEONDRE REILLY DRAFT REPORT DEONDRE CRISTINA DO
[~2019-03-14 19:02] MED LIST changes: +ATORVASTATIN CA40 M1 PO; +DICYCLOMINE HYD20 MG PO; +JARDIANCE25 MG PO; +LOSARTAN POTASS25 M1 PO; +MELATONIN10 M6 PO; +PROTONIX40 MG PO; +TIZANIDINE HCL4 MG PO; +TRAZODONE50 MG PO
[2019-03-14 19:54] LABS: BASO % 0.3 % (0.0-1.0); EOS # 0.1 10*3/uL (0.0-0.4); EOS % 1.8 % (1.0-4.0); HEMATOCRIT 40.7 % (37.0-47.0); HEMOGLOBIN 13.3 g/dl (12.0-16.0); LYMPH % 31.2 % (27.0-41.0); MEAN CELL VOLUME 98.3 fl (81.0-99.0); MEAN CORPUSCULAR HGB 32.1 pg (27.0-31.0); MEAN CORPUSCULAR HGB CONC 32.7 g/dl (33.0-37.0); MEAN PLATELET VOLUME 9.7 fl (9.6-12.3); MONO # 0.6 10*3/uL (0.1-1.0); MONO % 9.3 % (3.0-9.0); NEUT # 3.6 10*3/uL (2.3-7.9); NEUT % 56.9 % (47.0-73.0); PLATELET COUNT AUTOMATED 175 10*3/uL (130-400); RED BLOOD COUNT 4.14 10*6/uL (4.10-5.10); RED CELL DISTRI WIDTH 12.8 % (0-14.5); WHITE BLOOD COUNT 6.3 10*3/uL (4.8-10.8)
[2019-03-14 20:11] LABS: ALBUMIN 3.2 gm/dl (3.1-4.5); ALKALINE PHOSPHATASE 182 U/L (45-117); BUN 15 mg/dl (7-24); CHLORIDE 108 mmol/L (98-107); POTASSIUM 4.7 mmol/L (3.5-5.1); SGOT/AST 26 IU/L (3-35); SGPT/ALT 43 U/L (12-78); SODIUM 141 mmol/L (136-145); TOTAL PROTEIN 6.7 gm/dL (6.4-8.2)
[2019-03-14 20:14] LABS: TROPONIN I < 0.015 ng/ml (<0.045)
[2019-03-14 21:43] LABS: BILIRUBIN NEGATIVE (NEGATIVE); BLOOD NEGATIVE (NEGATIVE); CLARITY CLEAR (CLEAR); COLOR YELLOW (YELLOW); GLUCOSE 3+ (NEGATIVE); KETONE NEGATIVE (NEGATIVE); LEUKO ESTERASE NEGATIVE (NEGATIVE); NITRITE NEGATIVE (NEGATIVE); PH 7.5 (5.0-9.0); UROBILINOGEN 0.2 E.U./dl (0.2-1.0)
[2019-03-14 21:53] LABS: BACTERIA TRACE
== END 2019-03-14 22:41 | disposition home or self-care (01) ==
LOC: ED 19:02
PROVIDERS: Emergency Medicine
DX: G43.909 Migraine, unspecified, not intractable, without status migrainosus (principal); I10 Essential (primary) hypertension; E11.9 Type 2 diabetes mellitus without complications; J45.909 Unspecified asthma, uncomplicated; K21.9 Gastro-esophageal reflux disease without esophagitis; E78.5 Hyperlipidemia, unspecified; E66.9 Obesity, unspecified; Z91.048 Other nonmedicinal substance allergy status; Z79.899 Other long term (current) drug therapy

== ENCOUNTER → 2019-03-31 | Outpatient (CLI) | payer OTHER, MEDICAID ==
[2019-03-31 17:50] LABS: BILIRUBIN NEGATIVE (NEGATIVE); BLOOD NEGATIVE (NEGATIVE); CLARITY CLEAR (CLEAR); COLOR YELLOW (YELLOW); GLUCOSE NEGATIVE (NEGATIVE); KETONE NEGATIVE (NEGATIVE); LEUKO ESTERASE NEGATIVE (NEGATIVE); NITRITE NEGATIVE (NEGATIVE); PH 5.5 (5.0-9.0); UROBILINOGEN 0.2 E.U./dl (0.2-1.0)
[2019-03-31 18:00] LABS: BACTERIA 1+
[2019-03-31 19:14] LABS: ALBUMIN 3.6 gm/dl (3.1-4.5); ALKALINE PHOSPHATASE 153 U/L (45-117); BILIRUBIN, DIRECT < 0.1 mg/dL (0.0-0.2); BUN 14 mg/dl (7-24); CHLORIDE 109 mmol/L (98-107); CHOLESTEROL 126 mg/dL (<200); CREATININE 0.91 mg/dL (0.55-1.02); HDL CHOLESTEROL 40 mg/dl (40-60); LDL CHOLESTEROL 60 mg/dL (9-159); POTASSIUM 4.2 mmol/L (3.5-5.1); SGOT/AST 34 IU/L (3-35); SGPT/ALT 30 U/L (12-78); SODIUM 142 mmol/L (136-145); TOTAL PROTEIN 7.6 gm/dL (6.4-8.2); TRIGLYCERIDES 131 mg/dl (<150); VLDL CHOLESTEROL 26 mg/dL (6-40)
[2019-03-31 19:15] LABS: FREE T4 1.05 ng/dl (0.76-1.46)
== END | disposition home or self-care (01) ==
LOC: LAB 17:15
PROVIDERS: Internal Medicine; Registered Nurse Flight
DX: E11.65 Type 2 diabetes mellitus with hyperglycemia (principal); E78.5 Hyperlipidemia, unspecified; E04.9 Nontoxic goiter, unspecified; R30.0 Dysuria

== ENCOUNTER 2019-06-07 17:37 | Emergency (ER) | payer OTHER, MEDICAID ==
[~2019-06-07] VITALS: Ht 157.4 cm; Wt 95.3 kg
[2019-06-07 19:12] LABS: BASO % 0.3 % (0.0-1.0); EOS # 0.1 10*3/uL (0.0-0.4); EOS % 1.2 % (1.0-4.0); HEMATOCRIT 39.4 % (37.0-47.0); LYMPH # 1.9 10*3/uL (1.3-4.4); LYMPH % 25.6 % (27.0-41.0); MEAN CELL VOLUME 95.4 fl (81.0-99.0); MEAN CORPUSCULAR HGB 31.5 pg (27.0-31.0); MEAN PLATELET VOLUME 9.5 fl (9.6-12.3); MONO # 0.6 10*3/uL (0.1-1.0); MONO % 8.2 % (3.0-9.0); NEUT # 4.7 10*3/uL (2.3-7.9); NEUT % 64.3 % (47.0-73.0); PLATELET COUNT AUTOMATED 232 10*3/uL (130-400); RED BLOOD COUNT 4.13 10*6/uL (4.10-5.10); RED CELL DISTRI WIDTH 12.3 % (0-14.5); WHITE BLOOD COUNT 7.2 10*3/uL (4.8-10.8)
[2019-06-07 19:28] LABS: ALBUMIN 2.9 gm/dl (3.1-4.5); ALKALINE PHOSPHATASE 191 U/L (45-117); BUN 13 mg/dl (7-24); CHLORIDE 111 mmol/L (98-107); CREATININE 0.85 mg/dL (0.55-1.02); POTASSIUM 4.1 mmol/L (3.5-5.1); SGOT/AST 21 IU/L (3-35); SGPT/ALT 26 U/L (12-78); SODIUM 143 mmol/L (136-145); TOTAL PROTEIN 7.3 gm/dL (6.4-8.2)
[2019-06-07] MEDS ORDERED: TAMIFLU 75MG CA75 MG PO (20:22)
[2019-06-07] MEDS ORDERED: PREDNISONE50 MG PO (20:22)
[2019-06-07] MEDS ORDERED: PROVENTIL HFA6.7 GM INH (20:22)
[2019-06-07] MEDS ORDERED: DOXYCYCLINE100 M3 PO (20:22)
== END 2019-06-07 20:34 | disposition home or self-care (01) ==
LOC: ED 17:37
PROVIDERS: Nurse Practitioner Family
DX: J44.1 Chronic obstructive pulmonary disease with (acute) exacerbation (principal); R11.0 Nausea; R68.83 Chills (without fever); E11.9 Type 2 diabetes mellitus without complications; I10 Essential (primary) hypertension

== ENCOUNTER 2019-09-28 15:28 | Emergency (ER) | payer OTHER, MEDICAID ==
[~2019-09-28] VITALS: Ht 157.4 cm; Wt 98.9 kg
[~2019-09-28 15:28] MED LIST changes: +DOXYCYCLINE100 M3 PO; +PREDNISONE50 MG PO; +PROVENTIL HFA6.7 GM INH; +TAMIFLU 75MG CA75 MG PO
== END 2019-09-28 18:10 | disposition home or self-care (01) ==
LOC: ED 15:28
DX: S90.02XA Contusion of left ankle, initial encounter (principal); S80.01XA Contusion of right knee, initial encounter; Z88.8 Allergy status to other drugs, medicaments and biological substances; Z79.899 Other long term (current) drug therapy; Z79.2 Long term (current) use of antibiotics; W19.XXXA Unspecified fall, initial encounter; Y93.89 Activity, other specified; Y92.89 Other specified places as the place of occurrence of the external cause; Y99.8 Other external cause status

== ENCOUNTER → 2020-01-18 | Outpatient (CLI) | payer OTHER ==
[~2020-01-18] MED LIST changes: +NAPROXEN250 MG PO; +TYLENOL325 M1 PO
[2020-01-18 13:36] LABS: ALBUMIN 3.6 gm/dl (3.1-4.5); ALKALINE PHOSPHATASE 150 U/L (45-117); BILIRUBIN, DIRECT 0.2 mg/dL (0.0-0.2); BUN 12 mg/dl (7-24); CHLORIDE 108 mmol/L (98-107); CHOLESTEROL 175 mg/dL (<200); CREATININE 0.85 mg/dL (0.55-1.02); FREE T4 1.06 ng/dl (0.76-1.46); HDL CHOLESTEROL 48 mg/dl (40-60); LDL CHOLESTEROL 104 mg/dL (9-159); POTASSIUM 4.2 mmol/L (3.5-5.1); SGOT/AST 29 IU/L (3-35); SGPT/ALT 43 U/L (12-78); SODIUM 141 mmol/L (136-145); TOTAL PROTEIN 7.9 gm/dL (6.4-8.2); TRIGLYCERIDES 114 mg/dl (<150); VLDL CHOLESTEROL 23 mg/dL (6-40)
[2020-01-18 14:01] LABS: BILIRUBIN 1+ (NEGATIVE); BLOOD NEGATIVE (NEGATIVE); CLARITY SL CLOUDY (CLEAR); COLOR YELLOW (YELLOW); GLUCOSE 3+ (NEGATIVE); KETONE TRACE (NEGATIVE); LEUKO ESTERASE TRACE (NEGATIVE); NITRITE NEGATIVE (NEGATIVE); UROBILINOGEN 0.2 E.U./dl (0.2-1.0)
[2020-01-18 14:03] LABS: BACTERIA 1+; MUCOUS 1+
[2020-01-18 14:11] LABS: VITAMIN D, 25-HYDROXY 31.4 ng/mL (30-100)
== END | disposition home or self-care (01) ==
LOC: LAB 12:12
PROVIDERS: Internal Medicine
DX: E11.65 Type 2 diabetes mellitus with hyperglycemia (principal); E11.40 Type 2 diabetes mellitus with diabetic neuropathy, unspecified; E78.5 Hyperlipidemia, unspecified; E04.9 Nontoxic goiter, unspecified; E55.9 Vitamin D deficiency, unspecified; R25.2 Cramp and spasm

== ENCOUNTER 2020-01-19 13:34 | Emergency (ER) | payer OTHER ==
[~2020-01-19 13:34] MED LIST changes: -NAPROXEN250 MG PO; -TYLENOL325 M1 PO
[2020-01-19 14:04] LABS: BASO % 0.3 % (0.0-1.0); EOS # 0.1 10*3/uL (0.0-0.4); EOS % 1.3 % (1.0-4.0); HEMATOCRIT 43.3 % (37.0-47.0); LYMPH # 1.6 10*3/uL (1.3-4.4); LYMPH % 26.6 % (27.0-41.0); MEAN CELL VOLUME 91.5 fl (81.0-99.0); MEAN CORPUSCULAR HGB 31.1 pg (27.0-31.0); MEAN CORPUSCULAR HGB CONC 33.9 g/dl (33.0-37.0); MEAN PLATELET VOLUME 9.1 fl (9.6-12.3); MONO # 0.6 10*3/uL (0.1-1.0); MONO % 9.5 % (3.0-9.0); NEUT # 3.8 10*3/uL (2.3-7.9); NEUT % 62.1 % (47.0-73.0); PLATELET COUNT AUTOMATED 191 10*3/uL (130-400); RED BLOOD COUNT 4.73 10*6/uL (4.10-5.10); RED CELL DISTRI WIDTH 12.8 % (0-14.5); WHITE BLOOD COUNT 6.1 10*3/uL (4.8-10.8)
[2020-01-19 14:19] LABS: ALBUMIN 3.3 gm/dl (3.1-4.5); ALKALINE PHOSPHATASE 154 U/L (45-117); BUN 16 mg/dl (7-24); CHLORIDE 111 mmol/L (98-107); CREATININE 0.87 mg/dL (0.55-1.02); POTASSIUM 4.3 mmol/L (3.5-5.1); SGOT/AST 27 IU/L (3-35); SGPT/ALT 42 U/L (12-78); SODIUM 141 mmol/L (136-145); TOTAL PROTEIN 7.3 gm/dL (6.4-8.2)
[2020-01-19 14:22] LABS: BLOOD NEGATIVE (NEGATIVE); CLARITY SL CLOUDY (CLEAR); COLOR YELLOW (YELLOW); GLUCOSE NEGATIVE; KETONE TRACE
[2020-01-19 14:23] LABS: BILIRUBIN 1+; LEUKO ESTERASE TRACE (NEGATIVE); NITRITE NEGATIVE (NEGATIVE)
[2020-01-19 14:28] LABS: BACTERIA 1+; MUCOUS TRACE; RBC 0-2 rbc/hpf (0-2)
[2020-01-19] MEDS ORDERED: TYLENOL325 M1 PO (14:46)
[2020-01-19] MEDS ORDERED: NAPROXEN250 MG PO (14:46)
== END 2020-01-19 14:58 | disposition home or self-care (01) ==
LOC: ED 13:34
PROVIDERS: Emergency Medicine
DX: Z03.818 Encounter for observation for suspected exposure to other biological agents ruled out (principal); R51 Headache; M79.10 Myalgia, unspecified site; R68.83 Chills (without fever); R63.0 Anorexia; J44.9 Chronic obstructive pulmonary disease, unspecified; I10 Essential (primary) hypertension; E11.9 Type 2 diabetes mellitus without complications; E78.5 Hyperlipidemia, unspecified; M19.90 Unspecified osteoarthritis, unspecified site; E66.9 Obesity, unspecified; Z79.899 Other long term (current) drug therapy

== ENCOUNTER 2020-03-20 14:54 | Emergency (ER) | payer OTHER ==
[~2020-03-20] VITALS: Ht 157.4 cm; Wt 105.7 kg
== END 2020-03-20 17:00 | disposition home or self-care (01) ==
LOC: ED 14:54
DX: S40.261A Insect bite (nonvenomous) of right shoulder, initial encounter (principal); Z79.899 Other long term (current) drug therapy; W57.XXXA Bitten or stung by nonvenomous insect and other nonvenomous arthropods, initial encounter; Y93.89 Activity, other specified; Y92.89 Other specified places as the place of occurrence of the external cause; Y99.8 Other external cause status

== ENCOUNTER 2020-03-29 18:25 | Emergency (ER) | payer OTHER ==
[~2020-03-29] VITALS: Ht 157.4 cm; Wt 102.1 kg
[~2020-03-29 18:25] MED LIST changes: +IBUPROFEN600 MG PO; +NAPROXEN250 MG PO; +SEPTDS PO; +TYLENOL325 M1 PO
[2020-03-29] MEDS ORDERED: DOXYCYCLINE100 M3 PO (19:32)
== END 2020-03-29 20:03 | disposition home or self-care (01) ==
LOC: ED 18:25
DX: M86.8X1 Other osteomyelitis, shoulder (principal); Z88.8 Allergy status to other drugs, medicaments and biological substances; Z79.899 Other long term (current) drug therapy; Z79.84 Long term (current) use of oral hypoglycemic drugs; Z79.2 Long term (current) use of antibiotics

== ENCOUNTER 2020-08-26 23:37 | Emergency (ER) | payer OTHER | END 2020-08-27 01:54 | disposition home or self-care (01) | LOC: ED 23:37 | DX: S02.32XA Fracture of orbital floor, left side, initial encounter for closed fracture (principal); T14.8XXA Other injury of unspecified body region, initial encounter; M25.561 Pain in right knee; M25.562 Pain in left knee; M25.531 Pain in right wrist; M25.532 Pain in left wrist; M54.5 Low back pain; Z91.048 Other nonmedicinal substance allergy status; Z79.899 Other long term (current) drug therapy; Z79.2 Long term (current) use of antibiotics; Z98.84 Bariatric surgery status; Z98.51 Tubal ligation status; W10.9XXA Fall (on) (from) unspecified stairs and steps, initial encounter; Y93.89 Activity, other specified; Y92.89 Other specified places as the place of occurrence of the external cause; Y99.8 Other external cause status ==

== ENCOUNTER 2020-08-29 11:43 | Emergency (ER) | payer OTHER ==
[~2020-08-29] VITALS: Wt 104.3 kg
[2020-08-29 12:17] LABS: BASO % 0.6 % (0.0-1.0); EOS # 0.1 10*3/uL (0.0-0.4); EOS % 1.5 % (1.0-4.0); HEMATOCRIT 42.7 % (37.0-47.0); LYMPH # 1.6 10*3/uL (1.3-4.4); LYMPH % 33.8 % (27.0-41.0); MEAN CELL VOLUME 97.5 fl (81.0-99.0); MEAN CORPUSCULAR HGB 30.6 pg (27.0-31.0); MEAN CORPUSCULAR HGB CONC 31.4 g/dl (33.0-37.0); MEAN PLATELET VOLUME 9.2 fl (9.6-12.3); MONO # 0.4 10*3/uL (0.1-1.0); MONO % 8.6 % (3.0-9.0); NEUT # 2.6 10*3/uL (2.3-7.9); NEUT % 55.1 % (47.0-73.0); PLATELET COUNT AUTOMATED 179 10*3/uL (130-400); RED BLOOD COUNT 4.38 10*6/uL (4.10-5.10); RED CELL DISTRI WIDTH 12.8 % (0-14.5); WHITE BLOOD COUNT 4.7 10*3/uL (4.8-10.8)
[2020-08-29 12:28] LABS: ACT PARTIAL THROMBO TIME 23.8 SECONDS (20.0-32.1); INTERNATIONAL NORM RATIO 0.9 (2.0-3.5)
[2020-08-29 12:31] LABS: ALKALINE PHOSPHATASE 129 U/L (45-117); BUN 14 mg/dl (7-24); CHLORIDE 110 mmol/L (98-107); CREATININE 0.76 mg/dL (0.55-1.02); POTASSIUM 4.4 mmol/L (3.5-5.1); SGOT/AST 19 IU/L (3-35); SGPT/ALT 33 U/L (12-78); SODIUM 142 mmol/L (136-145); TOTAL PROTEIN 6.8 gm/dL (6.4-8.2)
[2020-08-29] MEDS ORDERED: HYDROCODONE-AC1 EAC1 PO (14:24)
== END 2020-08-29 14:30 | disposition home or self-care (01) ==
LOC: ED 11:43
PROVIDERS: Family Medicine
DX: S27.329A Contusion of lung, unspecified, initial encounter (principal); E11.9 Type 2 diabetes mellitus without complications; I10 Essential (primary) hypertension; F32.9 Major depressive disorder, single episode, unspecified; F41.9 Anxiety disorder, unspecified; K21.9 Gastro-esophageal reflux disease without esophagitis; J44.9 Chronic obstructive pulmonary disease, unspecified; Z88.8 Allergy status to other drugs, medicaments and biological substances; Z79.899 Other long term (current) drug therapy; Z98.890 Other specified postprocedural states; Z98.51 Tubal ligation status; X58.XXXA Exposure to other specified factors, initial encounter; Y93.89 Activity, other specified; Y92.89 Other specified places as the place of occurrence of the external cause; Y99.8 Other external cause status

== ENCOUNTER → 2020-11-04 | Outpatient (CLI) | payer OTHER ==
[~2020-11-04] MED LIST changes: +HYDROCODONE-AC1 EAC1 PO
[2020-11-04 08:40] LABS: BILIRUBIN Negative (Negative); BLOOD Negative (Negative); CLARITY Clear (Clear); COLOR Yellow (Yellow); GLUCOSE 3+ (Negative); KETONE Negative (Negative); LEUKO ESTERASE Negative (Negative); NITRITE Negative (Negative); PH 6.5 (4.5-8.0); SPECIFIC GRAVITY >= 1.030 (1.001-1.030)
[2020-11-04 08:57] LABS: BACTERIA TRACE; EPITHELIAL CELLS 16-20
[2020-11-04 08:59] LABS: ALKALINE PHOSPHATASE 145 U/L (45-117); BILIRUBIN, DIRECT 0.1 mg/dL (0.0-0.2); BUN 16 mg/dl (7-24); CHLORIDE 109 mmol/L (98-107); CHOLESTEROL 132 mg/dL (<200); LDL CHOLESTEROL 56 mg/dL (9-159); POTASSIUM 4.3 mmol/L (3.5-5.1); SGOT/AST 23 IU/L (3-35); SGPT/ALT 48 U/L (12-78); SODIUM 143 mmol/L (136-145); TOTAL PROTEIN 6.4 gm/dL (6.4-8.2); TRIGLYCERIDES 117 mg/dl (<150)
[2020-11-04 12:00] LABS: VITAMIN D, 25-HYDROXY 44.7 ng/mL (30-100)
== END | disposition home or self-care (01) ==
LOC: LAB 08:11
PROVIDERS: ATTEND Internal Medicine
DX: E11.65 Type 2 diabetes mellitus with hyperglycemia (principal); E78.5 Hyperlipidemia, unspecified; E55.9 Vitamin D deficiency, unspecified; E11.40 Type 2 diabetes mellitus with diabetic neuropathy, unspecified; R25.2 Cramp and spasm

== ENCOUNTER → 2020-12-26 | Outpatient (CLI) | payer OTHER | END | disposition home or self-care (01) | LOC: LAB 14:21 | PROVIDERS: ATTEND Nurse Practitioner Family | DX: R10.13 Epigastric pain (principal); R19.7 Diarrhea, unspecified ==

== ENCOUNTER → 2021-01-06 | Outpatient (CLI) | payer OTHER | END | disposition home or self-care (01) | LOC: US 09:31 | PROVIDERS: ATTEND Nurse Practitioner Family | DX: R10.13 Epigastric pain (principal) ==

== ENCOUNTER → 2021-02-26 | Outpatient (CLI) | payer OTHER ==
[2021-02-26 10:26] LABS: BILIRUBIN Negative (Negative); BLOOD Negative (Negative); CLARITY Clear (Clear); COLOR Yellow (Yellow); GLUCOSE 3+ (Negative); KETONE Negative (Negative); LEUKO ESTERASE Negative (Negative); NITRITE Negative (Negative); UROBILINOGEN 0.2 E.U./dl (0.0-1.0)
[2021-02-26 10:32] LABS: BACTERIA TRACE; RBC 0-2 rbc/hpf (0-2); WBC 0-2 wbc/hpf (0-5)
[2021-02-26 10:44] LABS: ALBUMIN 3.1 gm/dl (3.1-4.5); ALKALINE PHOSPHATASE 156 U/L (45-117); BUN 12 mg/dl (7-24); CHLORIDE 111 mmol/L (98-107); CHOLESTEROL 136 mg/dL (<200); CREATININE 0.88 mg/dL (0.55-1.02); FREE T4 1.02 ng/dl (0.76-1.46); LDL CHOLESTEROL 64 mg/dL (9-159); POTASSIUM 4.6 mmol/L (3.5-5.1); SGOT/AST 27 IU/L (3-35); SGPT/ALT 43 U/L (12-78); SODIUM 144 mmol/L (136-145); TOTAL PROTEIN 6.8 gm/dL (6.4-8.2); TRIGLYCERIDES 140 mg/dl (<150)
[2021-02-26 11:09] LABS: VITAMIN D, 25-HYDROXY 37.7 ng/mL (30-100)
== END | disposition home or self-care (01) ==
LOC: LAB 10:03
PROVIDERS: ATTEND Internal Medicine
DX: E78.5 Hyperlipidemia, unspecified (principal); E11.65 Type 2 diabetes mellitus with hyperglycemia; E55.9 Vitamin D deficiency, unspecified; E11.40 Type 2 diabetes mellitus with diabetic neuropathy, unspecified; E04.9 Nontoxic goiter, unspecified; R25.2 Cramp and spasm

== ENCOUNTER → 2021-02-27 | Outpatient (CLI) | payer OTHER | END | disposition home or self-care (01) | LOC: LAB 12:58 | PROVIDERS: ATTEND Family Medicine | DX: K52.9 Noninfective gastroenteritis and colitis, unspecified (principal) ==

== ENCOUNTER 2021-03-03 13:49 | Emergency (ER) | payer OTHER ==
[~2021-03-03] VITALS: Wt 102.1 kg
[2021-03-04] MEDS ORDERED: HYDROCODONE-AC1 EAC1 PO (01:34)
== END 2021-03-04 02:08 | disposition home or self-care (01) ==
LOC: ED 13:49
DX: S32.10XA Unspecified fracture of sacrum, initial encounter for closed fracture (principal); M48.061 Spinal stenosis, lumbar region without neurogenic claudication; Z79.899 Other long term (current) drug therapy; W18.39XA Other fall on same level, initial encounter; Y93.89 Activity, other specified; Y92.89 Other specified places as the place of occurrence of the external cause; Y99.8 Other external cause status

== ENCOUNTER → 2021-03-05 | Outpatient (CLI) | payer OTHER | END | disposition home or self-care (01) | LOC: MAMMO 11:00 | PROVIDERS: ATTEND Family Medicine | DX: Z12.31 Encounter for screening mammogram for malignant neoplasm of breast (principal); N64.89 Other specified disorders of breast ==

== ENCOUNTER → 2021-08-12 | Outpatient (CLI) | payer OTHER ==
[2021-08-12 10:54] LABS: BILIRUBIN Negative (Negative); BLOOD Negative (Negative); CLARITY Clear (Clear); COLOR Yellow (Yellow); GLUCOSE 3+ (Negative); KETONE Trace (Negative); LEUKO ESTERASE Trace (Negative); NITRITE Negative (Negative); SPECIFIC GRAVITY >= 1.030 (1.001-1.030); UROBILINOGEN 0.2 E.U./dl (0.0-1.0)
[2021-08-12 11:11] LABS: BUN 11 mg/dl (7-24); CHLORIDE 109 mmol/L (98-107); CHOLESTEROL 126 mg/dL (<200); POTASSIUM 4.1 mmol/L (3.5-5.1); SGOT/AST 17 IU/L (3-35); SGPT/ALT 31 U/L (12-78); SODIUM 143 mmol/L (136-145); TRIGLYCERIDES 103 mg/dl (<150)
[2021-08-12 11:15] LABS: ALKALINE PHOSPHATASE 128 U/L (45-117); FREE T4 1.09 ng/dl (0.76-1.46); LDL CHOLESTEROL 55 mg/dL (9-159); TOTAL PROTEIN 6.8 gm/dL (6.4-8.2)
[2021-08-12 11:26] LABS: BACTERIA TRACE; RBC 0-2 rbc/hpf (0-2)
[2021-08-12 13:37] LABS: VITAMIN D, 25-HYDROXY 51.6 ng/mL (30-100)
== END | disposition home or self-care (01) ==
LOC: LAB 10:29
PROVIDERS: ATTEND Internal Medicine
DX: E11.65 Type 2 diabetes mellitus with hyperglycemia (principal); E04.9 Nontoxic goiter, unspecified; R25.2 Cramp and spasm; E78.5 Hyperlipidemia, unspecified; E55.9 Vitamin D deficiency, unspecified

== ENCOUNTER → 2021-12-31 | Outpatient (CLI) | payer OTHER, MEDICAID ==
[2021-12-31 10:26] LABS: BILIRUBIN Negative (Negative); BLOOD Negative (Negative); CLARITY Clear (Clear); COLOR Yellow (Yellow); GLUCOSE 2+ (Negative); KETONE Trace (Negative); LEUKO ESTERASE Trace (Negative); NITRITE Negative (Negative); SPECIFIC GRAVITY 1.025 (1.001-1.030)
[2021-12-31 10:49] LABS: BUN 11 mg/dl (7-24); CHLORIDE 110 mmol/L (98-107); CHOLESTEROL 203 mg/dL (<200); CREATININE 0.77 mg/dL (0.55-1.02); POTASSIUM 4.1 mmol/L (3.5-5.1); SGOT/AST 32 IU/L (3-35); SGPT/ALT 39 U/L (12-78); SODIUM 140 mmol/L (136-145); TOTAL PROTEIN 6.3 gm/dL (6.4-8.2); TRIGLYCERIDES 164 mg/dl (<150)
[2021-12-31 10:51] LABS: ALKALINE PHOSPHATASE 131 U/L (45-117); LDL CHOLESTEROL 123 mg/dL (9-159)
[2021-12-31 11:07] LABS: VITAMIN D, 25-HYDROXY 31.3 ng/mL (30-100)
[2021-12-31 13:34] LABS: BACTERIA 2+; MUCOUS 1+
== END | disposition home or self-care (01) ==
LOC: LAB 09:55
PROVIDERS: ATTEND Internal Medicine
DX: E11.40 Type 2 diabetes mellitus with diabetic neuropathy, unspecified (principal); E78.5 Hyperlipidemia, unspecified; R25.2 Cramp and spasm; E55.9 Vitamin D deficiency, unspecified

== ENCOUNTER → 2022-02-04 | Outpatient (CLI) | payer OTHER, MEDICAID | END | disposition home or self-care (01) | LOC: US 04:45 | PROVIDERS: ATTEND Family Medicine | DX: N39.46 Mixed incontinence (principal) ==

== ENCOUNTER → 2022-04-20 | Outpatient (CLI) | payer OTHER, MEDICAID | END | disposition home or self-care (01) | LOC: MAMMO 08:30 | PROVIDERS: ATTEND Family Medicine | DX: Z12.31 Encounter for screening mammogram for malignant neoplasm of breast (principal); N64.9 Disorder of breast, unspecified ==

== ENCOUNTER → 2022-05-12 | Outpatient (CLI) | payer OTHER, MEDICAID ==
[2022-05-12 10:49] LABS: ALKALINE PHOSPHATASE 127 U/L (46-116); BUN 8 mg/dl (9-23); CHLORIDE 109 mmol/L (98-107); CHOLESTEROL 142 mg/dL (<200); CREATININE 0.74 mg/dL (0.55-1.02); LDL CHOLESTEROL 84 mg/dL (9-159); POTASSIUM 4.3 mmol/L (3.4-5.1); SGPT/ALT 34 U/L (10-49); SODIUM 143 mmol/L (136-145); THYROID STIM HORMONE (HS) 1.155 uIU/ml (0.550-4.780); TOTAL PROTEIN 6.1 gm/dL (6.0-8.0); TRIGLYCERIDES 67 mg/dl (<150)
[2022-05-12 10:50] LABS: BACTERIA 2+; BILIRUBIN Negative (Negative); BLOOD Negative (Negative); CLARITY Turbid (Clear); COLOR Yellow (Yellow); GLUCOSE Negative (Negative); KETONE Negative (Negative); LEUKO ESTERASE 2+ (Negative); NITRITE Negative (Negative); RBC 0-2 rbc/hpf (0-2); UROBILINOGEN 0.2 E.U./dl (0.0-1.0)
== END | disposition home or self-care (01) ==
LOC: LAB 09:48
PROVIDERS: ATTEND Internal Medicine
DX: E11.65 Type 2 diabetes mellitus with hyperglycemia (principal); E04.9 Nontoxic goiter, unspecified; E55.9 Vitamin D deficiency, unspecified; R25.2 Cramp and spasm; E78.5 Hyperlipidemia, unspecified

== ENCOUNTER → 2022-09-15 | Outpatient (CLI) | payer OTHER, MEDICAID ==
[2022-09-15 12:09] LABS: BASO % 0.2 % (0.0-1.0); EOS # 0.1 10*3/uL (0.0-0.4); EOS % 1.4 % (1.0-4.0); HEMATOCRIT 41.8 % (37.0-47.0); LYMPH # 1.9 10*3/uL (1.3-4.4); MEAN CELL VOLUME 94.8 fl (81.0-99.0); MEAN CORPUSCULAR HGB 31.5 pg (27.0-31.0); MEAN CORPUSCULAR HGB CONC 33.3 g/dl (33.0-37.0); MEAN PLATELET VOLUME 9.2 fl (9.6-12.3); MONO # 0.4 10*3/uL (0.1-1.0); MONO % 8.4 % (3.0-9.0); NEUT # 2.5 10*3/uL (2.3-7.9); NEUT % 51.8 % (47.0-73.0); PLATELET COUNT AUTOMATED 164 10*3/uL (130-400); RED BLOOD COUNT 4.41 10*6/uL (4.10-5.10); WHITE BLOOD COUNT 4.9 10*3/uL (4.8-10.8)
[2022-09-15 12:39] LABS: ALKALINE PHOSPHATASE 124 U/L (46-116); BUN 10 mg/dl (9-23); CHLORIDE 107 mmol/L (98-107); CHOLESTEROL 112 mg/dL (<200); LDL CHOLESTEROL 54 mg/dL (9-159); POTASSIUM 4.2 mmol/L (3.4-5.1); SGPT/ALT 31 U/L (10-49); TOTAL PROTEIN 6.7 gm/dL (6.0-8.0); TRIGLYCERIDES 79 mg/dl (<150)
== END | disposition home or self-care (01) ==
LOC: LAB 11:43
PROVIDERS: Family Medicine; ATTEND Family Medicine
DX: E11.9 Type 2 diabetes mellitus without complications (principal)

== ENCOUNTER → 2022-09-22 | Outpatient (CLI) | payer OTHER, MEDICAID ==
[2022-09-22 12:01] LABS: ALKALINE PHOSPHATASE 112 U/L (46-116); BUN 7 mg/dl (9-23); CHLORIDE 108 mmol/L (98-107); CHOLESTEROL 106 mg/dL (<200); LDL CHOLESTEROL 47 mg/dL (9-159); POTASSIUM 4.4 mmol/L (3.4-5.1); SGPT/ALT 25 U/L (10-49); TOTAL PROTEIN 6.4 gm/dL (6.0-8.0); TRIGLYCERIDES 92 mg/dl (<150); VITAMIN D, 25-HYDROXY 40.4 ng/mL (30-100)
[2022-09-22 12:17] LABS: BILIRUBIN Negative (Negative); BLOOD Negative (Negative); CLARITY Clear (Clear); COLOR Yellow (Yellow); GLUCOSE 3+ (Negative); KETONE Negative (Negative); LEUKO ESTERASE Negative (Negative); NITRITE Negative (Negative); UROBILINOGEN 0.2 E.U./dl (0.0-1.0)
[2022-09-22 13:34] LABS: BACTERIA 1+; EPITHELIAL CELLS 21-30
== END | disposition home or self-care (01) ==
LOC: LAB 10:54
PROVIDERS: ATTEND Internal Medicine
DX: E11.9 Type 2 diabetes mellitus without complications (principal); E78.5 Hyperlipidemia, unspecified; E11.40 Type 2 diabetes mellitus with diabetic neuropathy, unspecified; E55.9 Vitamin D deficiency, unspecified; E04.9 Nontoxic goiter, unspecified; R25.2 Cramp and spasm

== ENCOUNTER → 2022-09-29 | Outpatient (CLI) | payer OTHER, MEDICAID | END | disposition home or self-care (01) | LOC: LAB 07:51 | PROVIDERS: ATTEND Internal Medicine | DX: E34.9 Endocrine disorder, unspecified (principal); Z79.899 Other long term (current) drug therapy ==

== ENCOUNTER → 2022-12-30 | Outpatient (CLI) | payer OTHER ==
[2022-12-30 13:21] LABS: BILIRUBIN Negative (Negative); BLOOD Negative (Negative); CLARITY Clear (Clear); COLOR Yellow (Yellow); GLUCOSE 1+ (Negative); KETONE Trace (Negative); LEUKO ESTERASE Negative (Negative); NITRITE Negative (Negative); SPECIFIC GRAVITY 1.015 (1.001-1.030); UROBILINOGEN 0.2 E.U./dl (0.0-1.0)
[2022-12-30 13:39] LABS: BACTERIA TRACE; MUCOUS 1+; RBC 0-2 rbc/hpf (0-2); WBC 0-2 wbc/hpf (0-5)
[2022-12-30 13:46] LABS: ALKALINE PHOSPHATASE 153 U/L (46-116); CHLORIDE 108 mmol/L (98-107); CHOLESTEROL 197 mg/dL (<200); LDL CHOLESTEROL 128 mg/dL (9-159); SGPT/ALT 49 U/L (10-49); TOTAL PROTEIN 6.7 gm/dL (6.0-8.0); TRIGLYCERIDES 132 mg/dl (<150)
[2022-12-30 13:53] LABS: BUN 7 mg/dl (9-23)
== END | disposition home or self-care (01) ==
LOC: LAB 12:53
PROVIDERS: ATTEND Internal Medicine
DX: E11.9 Type 2 diabetes mellitus without complications (principal); E55.9 Vitamin D deficiency, unspecified; E78.5 Hyperlipidemia, unspecified; E34.9 Endocrine disorder, unspecified

== ENCOUNTER → 2023-03-01 | Outpatient (CLI) | payer OTHER ==
[2023-03-01 09:05] LABS: BASO % 0.5 % (0.0-1.0); BILIRUBIN Negative (Negative); BLOOD Negative (Negative); CLARITY Clear (Clear); COLOR Yellow (Yellow); EOS # 0.1 10*3/uL (0.0-0.4); EOS % 1.7 % (1.0-4.0); GLUCOSE 3+ (Negative); HEMATOCRIT 40.7 % (37.0-47.0); KETONE Negative (Negative); LEUKO ESTERASE Trace (Negative); LYMPH # 1.4 10*3/uL (1.3-4.4); LYMPH % 33.7 % (27.0-41.0); MEAN CELL VOLUME 92.5 fl (81.0-99.0); MEAN CORPUSCULAR HGB 31.4 pg (27.0-31.0); MEAN CORPUSCULAR HGB CONC 33.9 g/dl (33.0-37.0); MEAN PLATELET VOLUME 9.2 fl (9.6-12.3); MONO # 0.4 10*3/uL (0.1-1.0); MONO % 10.4 % (3.0-9.0); NEUT # 2.3 10*3/uL (2.3-7.9); NEUT % 53.2 % (47.0-73.0); NITRITE Negative (Negative); PLATELET COUNT AUTOMATED 162 10*3/uL (130-400); RED CELL DISTRI WIDTH 13.2 % (0-14.5); WHITE BLOOD COUNT 4.2 10*3/uL (4.8-10.8)
[2023-03-01 09:17] LABS: BACTERIA 1+
[2023-03-01 09:18] LABS: MUCOUS TRACE
[2023-03-01 09:24] LABS: ACT PARTIAL THROMBO TIME 24.2 SECONDS (20.0-32.1); INTERNATIONAL NORM RATIO 0.9 (2.0-3.5)
[2023-03-01 09:44] LABS: ALKALINE PHOSPHATASE 152 U/L (46-116); BUN 7 mg/dl (9-23); CHLORIDE 106 mmol/L (98-107); SGPT/ALT 29 U/L (10-49); TOTAL PROTEIN 6.5 gm/dL (6.0-8.0)
== END | disposition home or self-care (01) ==
LOC: LAB 08:22
PROVIDERS: ATTEND Orthopaedic Surgery
DX: Z01.812 Encounter for preprocedural laboratory examination (principal); M17.12 Unilateral primary osteoarthritis, left knee; R10.9 Unspecified abdominal pain; E11.9 Type 2 diabetes mellitus without complications; E78.5 Hyperlipidemia, unspecified; I10 Essential (primary) hypertension; Z79.899 Other long term (current) drug therapy

== ENCOUNTER → 2023-04-14 | Outpatient (CLI) | payer OTHER | END | disposition home or self-care (01) | LOC: CT 13:26 | PROVIDERS: ATTEND Internal Medicine | DX: J84.10 Pulmonary fibrosis, unspecified (principal); K86.89 Other specified diseases of pancreas; R91.1 Solitary pulmonary nodule; M43.8X4 Other specified deforming dorsopathies, thoracic region ==

== ENCOUNTER 2023-05-10 17:05 | Emergency (ER) | payer OTHER ==
[~2023-05-10] VITALS: Ht 157.4 cm
[2023-05-10 19:31] LABS: BASO % 0.6 % (0.0-1.0); EOS % 0.6 % (1.0-4.0); HEMATOCRIT 41.3 % (37.0-47.0); LYMPH # 0.7 10*3/uL (1.3-4.4); LYMPH % 20.5 % (27.0-41.0); MEAN CELL VOLUME 91.4 fl (81.0-99.0); MEAN CORPUSCULAR HGB CONC 33.9 g/dl (33.0-37.0); MEAN PLATELET VOLUME 8.4 fl (9.6-12.3); MONO # 0.5 10*3/uL (0.1-1.0); MONO % 14.6 % (3.0-9.0); NEUT # 2.1 10*3/uL (2.3-7.9); NEUT % 63.4 % (47.0-73.0); PLATELET COUNT AUTOMATED 151 10*3/uL (130-400); RED BLOOD COUNT 4.52 10*6/uL (4.10-5.10); RED CELL DISTRI WIDTH 13.4 % (0-14.5); WHITE BLOOD COUNT 3.4 10*3/uL (4.8-10.8)
[2023-05-10 19:57] LABS: ALKALINE PHOSPHATASE 174 U/L (46-116); CHLORIDE 108 mmol/L (98-107); POTASSIUM 3.6 mmol/L (3.4-5.1); SGPT/ALT 49 U/L (5-49)
[2023-05-10 20:02] LABS: BUN < 5 mg/dl (9-23)
[2023-05-10] MEDS ORDERED: TAMIFLU 75MG CA75 MG PO (20:13)
== END 2023-05-10 20:31 | disposition home or self-care (01) ==
LOC: ED 17:05
PROVIDERS: Nurse Practitioner Family
DX: J11.1 Influenza due to unidentified influenza virus with other respiratory manifestations (principal); F41.9 Anxiety disorder, unspecified; J44.9 Chronic obstructive pulmonary disease, unspecified; K21.9 Gastro-esophageal reflux disease without esophagitis; E78.5 Hyperlipidemia, unspecified; I10 Essential (primary) hypertension; E11.9 Type 2 diabetes mellitus without complications; M19.90 Unspecified osteoarthritis, unspecified site; F32.A Depression, unspecified; Z98.51 Tubal ligation status; Z98.890 Other specified postprocedural states; Z20.822 Contact with and (suspected) exposure to COVID-19

== ENCOUNTER → 2023-06-05 | Outpatient (CLI) | payer OTHER ==
[2023-06-05 11:02] LABS: BILIRUBIN Negative (Negative); BLOOD Negative (Negative); CLARITY Clear (Clear); COLOR Yellow (Yellow); GLUCOSE 3+ (Negative); KETONE Trace (Negative); LEUKO ESTERASE Trace (Negative); NITRITE Negative (Negative); SPECIFIC GRAVITY 1.025 (1.001-1.030); UROBILINOGEN 0.2 E.U./dl (0.0-1.0)
[2023-06-05 11:28] LABS: ALKALINE PHOSPHATASE 120 U/L (46-116); BUN 8 mg/dl (9-23); CHLORIDE 109 mmol/L (98-107); CHOLESTEROL 119 mg/dL (<200); FREE T4 0.98 ng/dl (0.89-1.76); LDL CHOLESTEROL 59 mg/dL (9-159); POTASSIUM 4.2 mmol/L (3.4-5.1); SGPT/ALT 22 U/L (5-49); TOTAL PROTEIN 6.9 gm/dL (6.0-8.0); TRIGLYCERIDES 95 mg/dl (<150)
[2023-06-05 11:39] LABS: VITAMIN D, 25-HYDROXY 49.2 ng/mL (30-100)
[2023-06-05 11:53] LABS: BACTERIA 1+
== END | disposition home or self-care (01) ==
LOC: LAB 10:26
PROVIDERS: ATTEND Internal Medicine
DX: E11.40 Type 2 diabetes mellitus with diabetic neuropathy, unspecified (principal); E04.9 Nontoxic goiter, unspecified; E55.9 Vitamin D deficiency, unspecified; R25.2 Cramp and spasm; E78.5 Hyperlipidemia, unspecified

== ENCOUNTER → 2023-10-27 | Outpatient (CLI) | payer OTHER ==
[2023-10-27 09:10] LABS: BILIRUBIN Negative (Negative); BLOOD Negative (Negative); CLARITY Clear (Clear); COLOR Yellow (Yellow); GLUCOSE 3+ (Negative); KETONE Negative (Negative); LEUKO ESTERASE Negative (Negative); NITRITE Negative (Negative); SPECIFIC GRAVITY 1.025 (1.001-1.030); UROBILINOGEN 0.2 E.U./dl (0.0-1.0)
[2023-10-27 09:21] LABS: RBC 0-2 rbc/hpf (0-2)
[2023-10-27 09:43] LABS: ALKALINE PHOSPHATASE 143 U/L (46-116); BUN 17 mg/dl (9-23); CHLORIDE 107 mmol/L (98-107); CHOLESTEROL 109 mg/dL (<200); LDL CHOLESTEROL 54 mg/dL (9-159); SGPT/ALT 21 U/L (5-49); TOTAL PROTEIN 6.7 gm/dL (6.0-8.0); TRIGLYCERIDES 86 mg/dl (<150); VITAMIN D, 25-HYDROXY 54.3 ng/mL (30-100)
== END ==
LOC: LAB 08:36
PROVIDERS: ATTEND Internal Medicine
DX: E11.40 Type 2 diabetes mellitus with diabetic neuropathy, unspecified (principal); E11.9 Type 2 diabetes mellitus without complications; R25.2 Cramp and spasm; E04.9 Nontoxic goiter, unspecified; E55.9 Vitamin D deficiency, unspecified; E78.5 Hyperlipidemia, unspecified

== ENCOUNTER 2023-12-25 21:48 | Emergency (ER) | payer OTHER ==
[~2023-12-25] VITALS: Ht 157.4 cm; Wt 104.3 kg
[2023-12-25] MEDS ORDERED: ACETAMINOPHEN 325 MG TAB PO ONE (22:35)
== END 2023-12-26 03:22 | disposition home or self-care (01) ==
LOC: ED 21:48
DX: S16.1XXA Strain of muscle, fascia and tendon at neck level, initial encounter (principal); S56.911A Strain of unspecified muscles, fascia and tendons at forearm level, right arm, initial encounter; S09.90XA Unspecified injury of head, initial encounter; E11.9 Type 2 diabetes mellitus without complications; J44.9 Chronic obstructive pulmonary disease, unspecified; Z79.899 Other long term (current) drug therapy; Z79.2 Long term (current) use of antibiotics; Z98.84 Bariatric surgery status; Z98.51 Tubal ligation status; Z98.890 Other specified postprocedural states; W10.8XXA Fall (on) (from) other stairs and steps, initial encounter; Y93.89 Activity, other specified; Y92.89 Other specified places as the place of occurrence of the external cause; Y99.8 Other external cause status

== ENCOUNTER → 2024-04-24 | Outpatient (CLI) | payer OTHER ==
[2024-04-24 09:12] LABS: BILIRUBIN Negative (Negative); BLOOD Negative (Negative); CLARITY Clear (Clear); COLOR Yellow (Yellow); GLUCOSE 3+ (Negative); KETONE Trace (Negative); LEUKO ESTERASE Negative (Negative); NITRITE Negative (Negative); SPECIFIC GRAVITY >= 1.030 (1.001-1.030); UROBILINOGEN 0.2 E.U./dl (0.0-1.0)
[2024-04-24 09:24] LABS: BACTERIA 1+; MUCOUS TRACE
[2024-04-24 09:27] LABS: ALKALINE PHOSPHATASE 146 U/L (46-116); BUN 9 mg/dl (9-23); CHLORIDE 108 mmol/L (98-107); CHOLESTEROL 92 mg/dL (<200); LDL CHOLESTEROL 40 mg/dL (9-159); POTASSIUM 4.1 mmol/L (3.4-5.1); SGPT/ALT 26 U/L (5-49); TOTAL PROTEIN 7.1 gm/dL (6.0-8.0); TRIGLYCERIDES 73 mg/dl (<150); VITAMIN D, 25-HYDROXY 52.9 ng/mL (30-100)
== END | disposition home or self-care (01) ==
LOC: LAB 08:23
PROVIDERS: ATTEND Internal Medicine
DX: E11.40 Type 2 diabetes mellitus with diabetic neuropathy, unspecified (principal); E55.9 Vitamin D deficiency, unspecified; E78.5 Hyperlipidemia, unspecified; E04.9 Nontoxic goiter, unspecified

== ENCOUNTER → 2024-08-03 | Outpatient (CLI) | payer OTHER ==
[2024-08-03 09:54] LABS: BILIRUBIN Negative (Negative); BLOOD Negative (Negative); CLARITY Clear (Clear); COLOR Yellow (Yellow); GLUCOSE 3+ (Negative); KETONE 2+ (Negative); LEUKO ESTERASE Negative (Negative); NITRITE Negative (Negative); PH 5.5 (4.5-8.0); SPECIFIC GRAVITY >= 1.030 (1.001-1.030); UROBILINOGEN 0.2 E.U./dl (0.0-1.0)
[2024-08-03 10:49] LABS: EPITHELIAL CELLS 21-30; WBC 0-2 wbc/hpf (0-5)
[2024-08-03 11:06] LABS: ALKALINE PHOSPHATASE 162 U/L (46-116); BUN 16 mg/dl (9-23); CHLORIDE 101 mmol/L (98-107); CHOLESTEROL 175 mg/dL (<200); LDL CHOLESTEROL 108 mg/dL (9-159); POTASSIUM 3.9 mmol/L (3.4-5.1); SGPT/ALT 37 U/L (5-49); TOTAL PROTEIN 7.6 gm/dL (6.0-8.0); TRIGLYCERIDES 103 mg/dl (<150); VITAMIN D, 25-HYDROXY 46.7 ng/mL (30-100)
== END | disposition home or self-care (01) ==
LOC: LAB 09:36
PROVIDERS: ATTEND Internal Medicine
DX: E11.40 Type 2 diabetes mellitus with diabetic neuropathy, unspecified (principal); E04.9 Nontoxic goiter, unspecified; E55.9 Vitamin D deficiency, unspecified; E78.5 Hyperlipidemia, unspecified; R25.2 Cramp and spasm

== ENCOUNTER → 2024-08-29 | Outpatient (CLI) | payer OTHER ==
[2024-08-29 16:20] LABS: ALKALINE PHOSPHATASE 151 U/L (46-116); BUN 8 mg/dl (9-23); CHLORIDE 104 mmol/L (98-107); CHOLESTEROL 123 mg/dL (<200); GAMMA GLUTAMYL TRANSPEPTIDASE 134 U/L (0-73); LDL CHOLESTEROL 67 mg/dL (9-159); POTASSIUM 4.2 mmol/L (3.4-5.1); SGPT/ALT 23 U/L (5-49); TOTAL PROTEIN 7.1 gm/dL (6.0-8.0); TRIGLYCERIDES 107 mg/dl (<150)
== END | disposition home or self-care (01) ==
LOC: LAB 15:40
PROVIDERS: ATTEND Family Medicine
DX: R74.8 Abnormal levels of other serum enzymes (principal); R74.01 Elevation of levels of liver transaminase levels; E78.5 Hyperlipidemia, unspecified

== ENCOUNTER → 2024-09-06 | Outpatient (CLI) | payer OTHER | END | disposition home or self-care (01) | LOC: US 08:10 | PROVIDERS: ATTEND Family Medicine | DX: K76.0 Fatty (change of) liver, not elsewhere classified (principal); R74.01 Elevation of levels of liver transaminase levels; E11.9 Type 2 diabetes mellitus without complications; E78.5 Hyperlipidemia, unspecified ==

== ENCOUNTER → 2024-10-13 | Outpatient (CLI) | payer OTHER ==
[2024-10-13 09:30] LABS: BASO % 0.4 % (0.0-1.0); EOS # 0.1 10*3/uL (0.0-0.4); HEMATOCRIT 42.2 % (37.0-47.0); MEAN CELL VOLUME 93.4 fl (81.0-99.0); MEAN CORPUSCULAR HGB 31.4 pg (27.0-31.0); MEAN CORPUSCULAR HGB CONC 33.6 g/dl (33.0-37.0); MEAN PLATELET VOLUME 9.3 fl (9.6-12.3); MONO # 0.4 10*3/uL (0.1-1.0); MONO % 8.7 % (3.0-9.0); NEUT % 60.1 % (47.0-73.0); PLATELET COUNT AUTOMATED 174 10*3/uL (130-400); RED BLOOD COUNT 4.52 10*6/uL (4.10-5.10); RED CELL DISTRI WIDTH 12.7 % (0-14.5); WHITE BLOOD COUNT 4.9 10*3/uL (4.8-10.8)
[2024-10-13 09:35] LABS: BILIRUBIN Negative (Negative); BLOOD Negative (Negative); CLARITY Cloudy (Clear); COLOR Yellow (Yellow); GLUCOSE 1+ (Negative); KETONE Trace (Negative); LEUKO ESTERASE Negative (Negative); NITRITE Negative (Negative); SPECIFIC GRAVITY 1.025 (1.001-1.030); UROBILINOGEN 0.2 E.U./dl (0.0-1.0)
[2024-10-13 09:49] LABS: ACT PARTIAL THROMBO TIME 23.7 SECONDS (20.0-32.1)
[2024-10-13 10:06] LABS: ALKALINE PHOSPHATASE 155 U/L (46-116); BUN 11 mg/dl (9-23); CHLORIDE 104 mmol/L (98-107); SGPT/ALT 30 U/L (5-49); TOTAL PROTEIN 7.3 gm/dL (6.0-8.0)
[2024-10-13 10:13] LABS: BACTERIA 1+; MUCOUS 2+
== END | disposition home or self-care (01) ==
LOC: LAB 08:41
PROVIDERS: ATTEND Orthopaedic Surgery
DX: Z01.818 Encounter for other preprocedural examination (principal); M47.814 Spondylosis without myelopathy or radiculopathy, thoracic region; M25.78 Osteophyte, vertebrae

== ENCOUNTER 2024-11-11 12:28 | Emergency (ER) | payer OTHER ==
[~2024-11-11] VITALS: Ht 157.4 cm; Wt 93.9 kg
== END 2024-11-11 13:49 | disposition home or self-care (01) ==
LOC: ED 12:28
DX: S80.01XA Contusion of right knee, initial encounter (principal); S70.11XA Contusion of right thigh, initial encounter; S90.01XA Contusion of right ankle, initial encounter; Z96.651 Presence of right artificial knee joint; Z79.899 Other long term (current) drug therapy; Z79.84 Long term (current) use of oral hypoglycemic drugs; Z98.84 Bariatric surgery status; Z98.890 Other specified postprocedural states; X50.1XXA Overexertion from prolonged static or awkward postures, initial encounter; Y93.89 Activity, other specified; Y92.89 Other specified places as the place of occurrence of the external cause; Y99.8 Other external cause status

== ENCOUNTER → 2025-01-31 | Outpatient (CLI) | payer OTHER ==
[2025-01-31 08:19] LABS: BILIRUBIN Negative (Negative); BLOOD Negative (Negative); CLARITY Clear (Clear); COLOR Yellow (Yellow); KETONE Trace (Negative); LEUKO ESTERASE Trace (Negative); NITRITE Negative (Negative); PH 5.5 (4.5-8.0); SPECIFIC GRAVITY 1.015 (1.001-1.030); UROBILINOGEN 1.0 E.U./dl (0.0-1.0)
[2025-01-31 08:35] LABS: BACTERIA 1+; EPITHELIAL CELLS 21-30; RBC 0-2 rbc/hpf (0-2)
[2025-01-31 09:09] LABS: BUN 10 mg/dl (9-23); LDL CHOLESTEROL 145 mg/dL (9-159); SGPT/ALT 23 U/L (5-49); VITAMIN D, 25-HYDROXY 33.8 ng/mL (30-100)
== END | disposition home or self-care (01) ==
LOC: LAB 07:56
PROVIDERS: ATTEND Internal Medicine
DX: E11.9 Type 2 diabetes mellitus without complications (principal); E78.5 Hyperlipidemia, unspecified; E11.40 Type 2 diabetes mellitus with diabetic neuropathy, unspecified; E04.9 Nontoxic goiter, unspecified; E55.9 Vitamin D deficiency, unspecified; R25.2 Cramp and spasm